=== PATIENT | male | born 1965 | race Caucasian/White ===

== ENCOUNTER 2019-12-30 11:28 | Inpatient (IN) | payer OTHER ==
--- NOTE | 2019-12-30 11:41 | BHS.RME ---
Substance Use & Tx History - Substance Use History Alcohol Substance amount: 6 beers daily 24 oz Frequency of use: Daily Substance route: Oral Date of Last Use: 12/30/19 - Last Treatment Date of last treatment: 2017 Treatment type: Substance Use Disorder (MINO) Where was last treatment: Detox Physical/Psych/Mental Status - Behavior General Behavior: Increased activity (restlessness, agitation) Eye Contact: Normal - Cooperativeness Cooperativeness: Cooperative - Thinking Thought Processes: Tight, Logical, Goal Directed Thought content: Future oriented - Physical Health Problems Is patient presently having any pain?: No Does patient presently have any injuries (include location): No Does patient currently have a fever: No Is patient : No CIWA Nausea/Vomitin Muscle Tremors: None Anxiety: 1-Mildly Anxious Agitation: 2 Paroxysmal Sweats: 1-Minimal Palms Moist Orientation: 0-Oriented Tacttile Disturbances: 2-Mild Itch/Numbness/Burn Auditory Disturbances: 0-None Visual Disturbances: 0-None Headache: 0-None Present CIWA-Ar Total Score: 8
[2019-12-30 12:39] VITALS: BMI 22.6
--- NOTE | 2019-12-30 13:09 | HP ---
CIWA Score Nausea/Vomitin-No Nausea/No Vomiting Muscle Tremors: None Anxiety: 0-No Anxiety, at Ease Agitation: 0-Normal Activity Paroxysmal Sweats: No Perspiration Orientation: 0-Oriented Tacttile Disturbances: 0-None Auditory Disturbances: 0-None Visual Disturbances: 0-None Headache: 0-None Present CIWA-Ar Total Score: 0 - Admission Criteria OASAS Guidelines: Admission for Medically Managed Detox: Requires at least one of the followin. CIWA greater than 12 2. Seizures within the past 24 hours 3. Delirium tremens within the past 24 hours 4. Hallucinations within the past 24 hours 5. Acute intervention needed for co occurring medical disorder 6. Acute intervention needed for co occurring psychiatric disorder 7. Severe withdrawal that cannot be handled at a lower level of care (continued vomiting, continued diarrhea, abnormal vital signs) requiring intravenous medication and/or fluids 8. Patient currently intoxicated with ERYN of 0.210. CIWA not applicable. Admitting History and Physical - Admission Chief Complaint: " I want to get better. I dont want to drink anymore." History of Present Illness: Substance Use & Tx History - Substance Use History Alcohol Substance amount: 6 beers daily 24 oz Frequency of use: Daily Substance route: Oral Date of Last Use: 12/30/19 - Last Treatment Date of last treatment: 2017 Treatment type: Substance Use Disorder (MINO) Where was last treatment: Detox Patient is a 54 y/o M who presents to [facility] for alcohol detox. Patient endo rses he consumes six 24 oz beer bottles per day; last drink was 9 am this morning. Patient first started to drink alcohol when he was 16 years old. Patient states he needs an eyeopener. PMH HTN, IDDM, HLD, GERD SocialHx- Former Tobacco Smoker 1 PPD (quit 20 years ago), Denies any illicit drug use. Alcohol history for HPI. SurgHx- LAP Cholecystectomy (2 years ago), Pilonidal cyst removal. FH- Father DM. Mother-HTN Allergies: Peanuts History Source: Patient Limitations to Obtaining History: No Limitations - Past Medical History Cardiovascular: Yes: HTN, Hyperlipdemia - Past Surgical History Past Surgical History: Yes: Cholecystectomy Additional Past Surgical History: Pilonidal cyst removal - Smoking History Smoking history: Former smoker Have you smoked in the past 12 months: No If you are a former smoker, when did you quit?: 20 YRS ago - Alcohol/Substance Use Hx Alcohol Use: Yes Admission [facility] Allergies/Adverse Reactions: Allergies Allergy/AdvReac Type Severity Reaction Status Date / Time No Known Drug Allergies Allergy Verified 12/30/19 12:26 peanuts Allergy Severe Difficulty Uncoded 12/30/19 12:26 Breathing Exam Limitations: No Limitations - Ebola screening Have you traveled outside of the country in the last 21 days: No Have you had contact with anyone from an Ebola affected area: No Have you been sick,other than usual withdrawal symptoms: No - Review of Systems Constitutional: No Symptoms Reported EENT: reports: No Symptoms Reported Respiratory: reports: No Symptoms reported Cardiac: reports: No Symptoms Reported GI: reports: No Symptoms Reported : reports: No Symptoms Reported Musculoskeletal: reports: No Symptoms Reported Integumentary: reports: No Symptoms Reported Neuro: reports: No Symptoms reported Endocrine: reports: No Symptoms Reported Hematology: reports: No Symptoms Reported Psychiatric: reports: Orientated x3 Other Systems: Reviewed and Negative Patient History - Patient Medical History Hx Anemia: No Hx Asthma: No Hx Chronic Obstructive Pulmonary Disease (COPD): No Hx Cancer: No Hx Cardiac Disorders: Yes (Hperlipidemia) Hx Congestive Heart Failure: No Hx Hypertension: Yes Hx Hypercholesterolemia: Yes (ON MED) Hx Pacemaker: No HX Cerebrovascular Accident: No Hx Seizures: No Hx Dementia: No Hx Diabetes: Yes Hx Gastrointestinal Disorders: Yes (GERDS) Hx Liver Disease: No Hx Genitourinary Disorders: No Hx Sexually Transmitted Disorders: No Hx Renal Disease (ESRD): No Hx Thyroid Disease: No Hx Human Immunodeficiency Virus (HIV): No (NEGATIVE HX 2013) Hx Hepatitis C: No Hx Depression: No Hx Suicide Attempt: No Hx Bipolar Disorder: No Hx Schizophrenia: No - Patient Surgical History Past Surgical History: Yes Hx Neurologic Surgery: No Hx Cataract Extraction: No Hx Cardiac Surgery: No Hx Lung Surgery: No Hx Breast Surgery: No Hx Breast Biopsy: No Hx Abdominal Surgery: Yes (lap cholecystectomy 06/18/17) Hx Appendectomy: No Hx Cholecystectomy: No Hx Genitourinary Surgery: No Hx Section: No Hx Orthopedic Surgery: No Other Surgical History: pilonidal cyst at age of age 42 Anesthesia Reaction: No - PPD History Date: 12/18/17 - Smoking Cessation Smoking history: Former smoker Have you smoked in the past 12 months: No If you are a former smoker, when did you quit?: 20 YRS ago Cigars Per Day: 0 Hx Chewing Tobacco Use: No Initiated information on smoking cessation: No - Substance & Tx. History Hx Alcohol Use: Yes Hx Substance Use: Yes Substance Use Type: Alcohol - Substances abused Alcohol Substance route: Oral Frequency: Daily Amount used: 12 beers Age of first use: 16 Date of last use: 12/30/19 Admission Physical Exam [facility] - Vital Signs Vital Signs: Vital Signs - 24 hr 12/30/19 12:36 Temperature 98.0 F Pulse Rate 98 H Respiratory 20 Rate Blood Pressure 151/95 - Diagnostic (1) Insulin dependent diabetes mellitus Current Visit: Yes Status: Chronic (2) Alcohol dependence with uncomplicated withdrawal Current Visit: No Status: Acute (3) Hx of gastroesophageal reflux (GERD) Current Visit: No Status: Chronic (4) Hypercholesterolemia Current Visit: No Status: Chronic (5) Hypertension Current Visit: No Status: Chronic Qualifiers: Hypertension type: essential hypertension Cleared for Admission [facility] - Detox or Rehab [facility] Level of Care: Medically Managed Detox Regimen/Protocol: Librium Breathalyzer - Breathalyzer Breathalyzer: 0.210 Urine Drug Screen - Test Device Lot number: [id number] Expiration date: 02/15/21 - Control Is test valid?: Yes - Results Drug screen NEGATIVE: Yes Inpatient Rehab Admission - Rehab Decision to Admit Inpatient rehab admission?: No
[2019-12-30] MEDS ORDERED: METHOCARBAMOL 500 MG TABLET PO PRN (13:35)
[2019-12-30] MEDS ORDERED: BISMUTH SUBSALICYLATE 524 MG/30 ML UD PO PRN (13:35)
[2019-12-30] MEDS ORDERED: NICOTINE POLACRILEX 2 MG GUM BUC PRN (13:35)
[2019-12-30] MEDS ORDERED: MAG HYDROX/AL HYDROX/SIMETH 30 ML UNIT-DOSE CUP PO PRN (13:35)
[2019-12-30] MEDS ORDERED: MENTHOL/PHENOL 1 EACH UD MM PRN (13:35)
[2019-12-30] MEDS ORDERED: MAGNESIUM HYDROX 2400MG/30ML ORAL SUSPENSION 30 ML CUP PO PRN (13:35)
[2019-12-30] MEDS ORDERED: MAGNESIUM CITRATE 300 ML BOTTLE PO PRN (13:35)
[2019-12-30] MEDS ORDERED: ACETAMINOPHEN 325 MG TABLET (FP) PO PRN (13:35)
[2019-12-30] MEDS ORDERED: chlordiazePOXIDE HCL 25 MG CAPSULE PO PRN (13:36)
--- NOTE | 2019-12-30 13:42 | PN ---
Teaching Attending Note Name of Resident: Reji Gomez ATTENDING PHYSICIAN STATEMENT I saw and evaluated the patient. I reviewed the resident's note and discussed the case with the resident. I agree with the resident's findings and plan as documented. SUBJECTIVE: Agree with resident's subjective findings OBJECTIVE: Agree with resident's objective findings. ASSESSMENT AND PLAN: Agree with admission for detox from alcohol using Librium Detox Protocol.
[2019-12-30] MEDS ORDERED: ONDANSETRON *ODT* 4 MG TABLET SL ONE (13:45)
[2019-12-30] MEDS ORDERED: TUBERCULIN PPD 5 TU/0.1ML VIAL ID ONE (14:34)
[2019-12-30] MEDS: NICOTINE 7 MG/24 HOURS TOPICAL PATCH TD SCH (14:41)
[2019-12-30] MEDS: PRENATAL VITAMINS W/ FOLIC ACID TABLET (FP) PO SCH (14:42)
[2019-12-30] MEDS: hydrOXYzine PAMOATE 25 MG CAPSULE (FP) PO SCH ×3 (14:42→22:05)
[2019-12-30] MEDS: IBUPROFEN 400 MG TABLET (FP) PO PRN (14:48)
[2019-12-30 16:49] LABS: HEMATOCRIT 46.9 % (35.4-49); HEMOGLOBIN 15.7 GM/dL (11.7-16.9); MCH 31.9 pg (25.7-33.7); MCHC 33.4 g/dl (32.0-35.9); MEAN CELL VOLUME 95.3 fl (80-96); MEAN PLT VOLUME 8.3 fl (7.5-11.1); PLATELET COUNT 221 K/MM3 (134-434); RBC 4.92 M/mm3 (4.00-5.60); RDW 14.2 % (11.9-15.9); WHITE BLOOD COUNT 6.6 K/mm3 (4.0-10.0)
[2019-12-30 16:58] LABS: ALBUMIN 4.1 g/dl (3.4-5.0); BILIRUBIN,TOTAL 0.3 mg/dL (0.2-1); BLOOD UREA NITROGEN 4.9 mg/dL (7-18); CALCIUM 8.8 mg/dL (8.5-10.1); CREATININE 0.7 mg/dL (0.55-1.3); MAGNESIUM 2.5 mg/dL (1.8-2.4); PHOSPHOROUS 3.5 mg/dL (2.5-4.9); TOT PROT 8.1 g/dl (6.4-8.2)
[2019-12-30] MEDS: chlordiazePOXIDE HCL 25 MG CAPSULE PO SCH ×2 (17:14→22:05)
[2019-12-30] MEDS: GABAPENTIN 300 MG CAPSULE PO SCH (22:05)
[2019-12-30] MEDS: MELATONIN 5 MG TABLETS PO SCH (22:05)
[2019-12-30] MEDS: THIAMINE HCL 100 MG TABLET (FP) PO SCH (22:05)
[2019-12-30] MEDS: INSULIN (LEVEMIR) 100 UNITS/ML UNITS SQ SCH (22:07)
[2019-12-31] MEDS: hydrOXYzine PAMOATE 25 MG CAPSULE (FP) PO SCH ×5 (06:24→22:13)
[2019-12-31] MEDS: chlordiazePOXIDE HCL 25 MG CAPSULE PO SCH ×4 (06:25→22:14)
--- NOTE | 2019-12-31 09:45 | EKG ---
Test Reason : Blood Pressure : / mmHG Vent. Rate : 096 BPM Atrial Rate : 096 BPM P-R Int : 152 ms QRS Dur : 098 ms QT Int : 364 ms P-R-T Axes : 061 034 053 degrees QTc Int : 459 ms NORMAL SINUS RHYTHM possibly inferior infarct ABNORMAL ECG Confirmed by MD HO, JIGAR ([id number]) on 12/31/2019 9:45:34 AM Referred By: Kendra ARCOS Confirmed By:JIGAR TEAGUE MD
[2019-12-31] MEDS: LISINOPRIL 5 MG TABLET (FP) PO SCH (10:13)
[2019-12-31] MEDS: PRENATAL VITAMINS W/ FOLIC ACID TABLET (FP) PO SCH (10:13)
[2019-12-31] MEDS: GABAPENTIN 300 MG CAPSULE PO SCH ×2 (10:13→22:13)
[2019-12-31] MEDS: ASPIRIN 81 MG CHEWABLE TABLETS PO SCH (10:13)
[2019-12-31] MEDS: NICOTINE 7 MG/24 HOURS TOPICAL PATCH TD SCH (10:13)
--- NOTE | 2019-12-31 10:18 | PN ---
S CIWA - CIWA Score Nausea/Vomitin-No Nausea/No Vomiting Muscle Tremors: 1-None Visible, but [place] Anxiety: 0-No Anxiety, at Ease Agitation: 0-Normal Activity Paroxysmal Sweats: 1-Minimal Palms Moist Orientation: 0-Oriented Tacttile Disturbances: 0-None Auditory Disturbances: 0-None Visual Disturbances: 0-None Headache: 0-None Present CIWA-Ar Total Score: 2 BHS Progress Note (SOAP) Subjective: Patient found sitting in Dining Room. Reports, "I feel good." Objective: General: no apparent distress HEENTM: normocephalic, PERRLA NEck: supple Resp: Respirations unlabored, clear, no use of accessory muscles ABD: +BS MSK: full weight bearing, steady gait Neuro: A+OX4, Muscle strength equal bilaterally 12/31/19 10:14 12/31/19 10:17 Vital Signs Period Temp Pulse Resp BP Sys/Reis Pulse Ox Last 24 Hr 97.7 F-98.4 F 88-112 16-20 140-154/76-95 95-98 Assessment: Withdrawal from Alcohol 12/31/19 10:17 Plan: Continue detox protocol Encourage hydration & nutrition Maintain safety
[2019-12-31] MEDS ORDERED: INSULIN (NOVOLOG) ASPART 100 UNITS/ML 10ML VIAL ONE (17:20)
[2019-12-31] MEDS: INSULIN SLIDING SCALE (NOVOLOG) 1 VIAL SQ SCH ×2 (18:04→22:11)
[2019-12-31] MEDS: INSULIN (LEVEMIR) 100 UNITS/ML UNITS SQ SCH (22:09)
[2019-12-31] MEDS ORDERED: INSULIN (LEVEMIR) 100 UNITS/ML UNITS SQ ONE (22:11)
[2019-12-31] MEDS: THIAMINE HCL 100 MG TABLET (FP) PO SCH (22:13)
[2019-12-31] MEDS: MELATONIN 5 MG TABLETS PO SCH (22:13)
[2019-12-31] MEDS: ACETAMINOPHEN 325 MG TABLET (FP) PO PRN (22:14)
[2020-01-01] MEDS: hydrOXYzine PAMOATE 25 MG CAPSULE (FP) PO SCH ×5 (06:29→21:50)
[2020-01-01] MEDS: chlordiazePOXIDE HCL 25 MG CAPSULE PO SCH ×4 (06:29→21:59)
[2020-01-01] MEDS: INSULIN SLIDING SCALE (NOVOLOG) 1 VIAL SQ SCH ×4 (06:31→21:51)
[2020-01-01] MEDS: ACETAMINOPHEN 325 MG TABLET (FP) PO PRN (06:32)
[2020-01-01] MEDS: IBUPROFEN 400 MG TABLET (FP) PO PRN (09:23)
[2020-01-01] MEDS: LISINOPRIL 5 MG TABLET (FP) PO SCH (10:37)
[2020-01-01] MEDS: ASPIRIN 81 MG CHEWABLE TABLETS PO SCH (10:38)
[2020-01-01] MEDS: PRENATAL VITAMINS W/ FOLIC ACID TABLET (FP) PO SCH (10:38)
[2020-01-01] MEDS: NICOTINE 7 MG/24 HOURS TOPICAL PATCH TD SCH (10:38)
[2020-01-01] MEDS: GABAPENTIN 300 MG CAPSULE PO SCH ×2 (10:38→21:50)
[2020-01-01] MEDS ORDERED: INSULIN (NOVOLOG) ASPART 100 UNITS/ML 10ML VIAL ONE ×3 (11:32→22:43)
--- NOTE | 2020-01-01 12:58 | PN ---
[facility] CIWA - CIWA Score Nausea/Vomitin-Mild Nausea/No Vomiting Muscle Tremors: 1-None Visible, but [place] Anxiety: 3 Agitation: 0-Normal Activity Paroxysmal Sweats: 4-Forehead w/Sweat Beads Orientation: 0-Oriented Tacttile Disturbances: 1-Very Mild Itch/Numbness Auditory Disturbances: 0-None Visual Disturbances: 0-None Headache: 1-Very Mild CIWA-Ar Total Score: 11 BHS Progress Note (SOAP) Subjective: Patient c/o abd discomfort. Reports hx of gallstones, previous surgery, and states that sometimes causes pain. States that malanta does not work, and that nexium works. Also c/o lower extremity neuropathy; patient is diabetic, he reports that he does not have his amary or metformin. Also reporting left ear pain. Patient endorses he consumes six 24 oz beer bottles per day; last drink was 9 am this morning. Patient first started to drink alcohol when he was 16 years old. Patient states he needs an eyeopener. PMH HTN, IDDM, HLD, GERD SocialHx- Former Tobacco Smoker 1 PPD (quit 20 years ago), Denies any illicit drug use. Alcohol history for HPI. SurgHx- LAP Cholecystectomy (2 years ago), Pilonidal cyst removal. FH- Father DM. Mother-HTN Objective: 01/01/20 12:57 Lab Results WBC 6.6 K/mm3 (4.0-10.0) 12/30/19 13:00 RBC 4.92 M/mm3 (4.00-5.60) 12/30/19 13:00 Hgb 15.7 GM/dL (11.7-16.9) 12/30/19 13:00 Hct 46.9 % (35.4-49) 12/30/19 13:00 MCV 95.3 fl (80-96) 12/30/19 13:00 MCHC 33.4 g/dl (32.0-35.9) 12/30/19 13:00 RDW 14.2 % (11.9-15.9) 12/30/19 13:00 Plt Count 221 K/MM3 (134-434) 12/30/19 13:00 Sodium 139 mmol/L (136-145) 12/30/19 13:00 Potassium 4.0 mmol/L (3.5-5.1) 12/30/19 13:00 Chloride 102 mmol/L (98-107) 12/30/19 13:00 Carbon Dioxide 26 mmol/L (21-32) 12/30/19 13:00 Anion Gap 11 MMOL/L (8-16) 12/30/19 13:00 BUN 4.9 mg/dL (7-18) L 12/30/19 13:00 Creatinine 0.7 mg/dL (0.55-1.3) 12/30/19 13:00 Random Glucose 222 mg/dL (74-106) H 12/30/19 13:00 Calcium 8.8 mg/dL (8.5-10.1) 12/30/19 13:00 Vital Signs Period Temp Pulse Resp BP Sys/Reis Pulse Ox Last 24 Hr 97.1 F-97.6 F 75-92 16-18 130-138/75-83 97-97 01/01/20 13:10 General: anxious HEENTM: Normocephalic, unable to visualize left TM-cerumen, PERRLA, EOMI Neck: supple Resp: unlabored, no use of accessory muscles ABD: +BS,distended, non-tender MSK: full weight bearing, steady gait neuro: decreased sensation, bilateral feet; muscle strength equal bilaterally Assessment: withdrawal from alcohol GERD Excessive cerumen, left ear canal diabetes, type 2 01/01/20 13:13 01/01/20 13:14 Plan: Continue detox protocol Hydration and nutrition Start protonix Order metformin and amaryl Psych consult to determine if gabapentin and pamelor are for psychiatric issues or neuropathy (patient unable to tell me). If for neuropathy, will order.
--- NOTE | 2020-01-01 16:15 | CONSULT ---
[facility] Psychiatric Consult - Data Date of interview: 01/01/20 Admission source: [facility] Identifying data: Patient is a 54 year old male, father of four, domiciled, and employed as a commercial driver's license driver. This is one of multiple admissions for patient. Patient admitted to for alcohol dependence. Substance Abuse History: - Smoking Cessation. Smoking history: Former smoker. Have you smoked in the past 12 months: No. If you are a former smoker, when did you quit?: 20 YRS ago. Cigars Per Day: 0. Hx Chewing Tobacco Use: No. Initiated information on smoking cessation: No. - Substance & Tx. History. Hx Alcohol Use: Yes. Hx Substance Use: Yes. Substance Use Type: Alcohol. - Substances abused. Alcohol. Substance route: Oral. Frequency: Daily. Amount used: 12 beers. Age of first use: 16. Date of last use: 12/30/19 Medical History: Significant for history of HTN,Hyperlipidemia, IDDM, GERD and S/P removal of Pilonidal cyst Psychiatric History: Patient denies history of psychiatric hospitalization, outpatient care and suicide attempt. Physical/Sexual Abuse/Trauma History: denies. Mental Status Exam - Mental Status Exam Alert and Oriented to: Time, Place, Person Cognitive Function: Good Patient Appearance: Well Groomed Mood: Hopeful Affect: Appropriate Patient Behavior: Appropriate, Cooperative Speech Pattern: Appropriate Voice Loudness: Normal Thought Process: Goal Oriented Thought Disorder: Not Present Hallucinations: Denies Suicidal Ideation: Denies Homicidal Ideation: Denies Insight/Judgement: Poor Sleep: Fair Appetite: Fair Muscle strength/Tone: Normal Gait/Station: Normal Psychiatric Findings - Problem List ([place] 1, 2,3) (1) Alcohol dependence with uncomplicated withdrawal Current Visit: Yes Status: Acute - Initial Treatment Plan Initial Treatment Plan: Psychoeducation provided. Detoxification in progress. Observation.
[2020-01-01] MEDS: metFORMIN HCL 500 MG TABLET (FP) PO SCH (16:28)
[2020-01-01] MEDS: ATORVASTATIN CA 20 MG TABLET (FP) PO SCH (21:50)
[2020-01-01] MEDS: THIAMINE HCL 100 MG TABLET (FP) PO SCH (21:50)
[2020-01-01] MEDS: CARBAMIDE PEROXIDE 6.5% OTIC 15 ML BOTTLE AS SCH (21:51)
[2020-01-01] MEDS: INSULIN (LEVEMIR) 100 UNITS/ML UNITS SQ SCH (21:51)
[2020-01-01] MEDS: MELATONIN 5 MG TABLETS PO SCH (21:52)
[2020-01-02] MEDS ORDERED: chlordiazePOXIDE HCL 10 MG CAPSULE PO PRN
[2020-01-02] MEDS: chlordiazePOXIDE HCL 10 MG CAPSULE PO SCH ×4 (05:54→22:35)
[2020-01-02] MEDS: hydrOXYzine PAMOATE 25 MG CAPSULE (FP) PO SCH ×5 (05:54→22:35)
[2020-01-02] MEDS: GLIMEPIRIDE 4 MG TABLET PO SCH (06:00)
[2020-01-02] MEDS: INSULIN SLIDING SCALE (NOVOLOG) 1 VIAL SQ SCH ×4 (06:00→22:31)
[2020-01-02] MEDS: metFORMIN HCL 500 MG TABLET (FP) PO SCH ×2 (06:00→17:10)
[2020-01-02] MEDS: IBUPROFEN 400 MG TABLET (FP) PO PRN ×2 (06:04→17:28)
[2020-01-02] MEDS ORDERED: INSULIN (NOVOLOG) ASPART 100 UNITS/ML 10ML VIAL ONE ×4 (06:17→22:33)
[2020-01-02] MEDS: GABAPENTIN 300 MG CAPSULE PO SCH ×2 (11:09→22:34)
[2020-01-02] MEDS: LISINOPRIL 5 MG TABLET (FP) PO SCH (11:09)
[2020-01-02] MEDS: ASPIRIN 81 MG CHEWABLE TABLETS PO SCH (11:10)
[2020-01-02] MEDS: NICOTINE 7 MG/24 HOURS TOPICAL PATCH TD SCH (11:10)
[2020-01-02] MEDS: PRENATAL VITAMINS W/ FOLIC ACID TABLET (FP) PO SCH (11:10)
[2020-01-02] MEDS: CARBAMIDE PEROXIDE 6.5% OTIC 15 ML BOTTLE AS SCH ×2 (11:12→22:35)
[2020-01-02] MEDS: ACETAMINOPHEN 325 MG TABLET (FP) PO PRN ×2 (11:37→23:27)
[2020-01-02] MEDS ORDERED: ONDANSETRON *ODT* 4 MG TABLET SL PRN (12:40)
--- NOTE | 2020-01-02 12:40 | PN ---
S CIWA - CIWA Score Nausea/Vomitin-No Nausea/No Vomiting Muscle Tremors: 3 Anxiety: 4-Mod. Anxious/Guarded Agitation: 2 Paroxysmal Sweats: No Perspiration Orientation: 0-Oriented Tacttile Disturbances: 0-None Auditory Disturbances: 0-None Visual Disturbances: 0-None Headache: 0-None Present CIWA-Ar Total Score: 9 BHS Progress Note (SOAP) Subjective: Pt seen this morning exercise-walking on the hallway during rounds. C/o tremors fatigue nausea/vomitting "woozy" feeling Objective: 01/02/20 12:37 Vital Signs - 24 hr 01/01/20 01/01/20 01/01/20 12:38 16:30 20:30 Temperature 97.3 F L 97.3 F L 97.3 F L Pulse Rate 86 76 81 Respiratory 18 16 18 Rate Blood Pressure 149/95 148/78 154/91 O2 Sat by Pulse 98 98 Oximetry (%) 01/02/20 01/02/20 05:47 09:18 Temperature 97.1 F L 98.4 F Pulse Rate 64 95 H Respiratory 18 16 Rate Blood Pressure 129/72 131/76 O2 Sat by Pulse 96 98 Oximetry (%) Laboratory Tests 12/30/19 12/30/19 12/30/19 12:52 13:00 13:00 WBC 6.6 RBC 4.92 Hgb 15.7 Hct 46.9 MCV 95.3 MCH 31.9 MCHC 33.4 RDW 14.2 Plt Count 221 MPV 8.3 Sodium 139 Potassium 4.0 Chloride 102 Carbon Dioxide 26 Anion Gap 11 BUN 4.9 L Creatinine 0.7 Est GFR (CKD-EPI)AfAm 125.75 Est GFR (CKD-EPI)NonAf 108.50 POC Glucometer 219 Random Glucose 222 H Hemoglobin A1c % Calcium 8.8 Phosphorus 3.5 Magnesium 2.5 H Total Bilirubin 0.3 AST 96 H ALT 96 H Alkaline Phosphatase 100 Total Protein 8.1 Albumin 4.1 Syphilis Serology COVID-19 ([facility]) HIV Ag/Ab Combo Qual 12/30/19 12/30/19 12/30/19 13:00 13:15 14:30 WBC RBC Hgb Hct MCV MCH MCHC RDW Plt Count MPV Sodium Potassium Chloride Carbon Dioxide Anion Gap BUN Creatinine Est GFR (CKD-EPI)AfAm Est GFR (CKD-EPI)NonAf POC Glucometer Random Glucose Hemoglobin A1c % Calcium Phosphorus Magnesium Total Bilirubin AST ALT Alkaline Phosphatase Total Protein Albumin Syphilis Serology Non-reactive COVID-19 ([facility]) Not detected HIV Ag/Ab Combo Qual Negative 12/30/19 12/31/19 12/31/19 20:45 07:30 16:47 WBC RBC Hgb Hct MCV MCH MCHC RDW Plt Count MPV Sodium Potassium Chloride Carbon Dioxide Anion Gap BUN Creatinine Est GFR (CKD-EPI)AfAm Est GFR (CKD-EPI)NonAf POC Glucometer 333 256 Random Glucose Hemoglobin A1c % 9.6 H Calcium Phosphorus Magnesium Total Bilirubin AST ALT Alkaline Phosphatase Total Protein Albumin Syphilis Serology COVID-19 ([facility]) HIV Ag/Ab Combo Qual 12/31/19 01/01/20 01/01/20 22:08 06:28 11:28 WBC RBC Hgb Hct MCV MCH MCHC RDW Plt Count MPV Sodium Potassium Chloride Carbon Dioxide Anion Gap BUN Creatinine Est GFR (CKD-EPI)AfAm Est GFR (CKD-EPI)NonAf POC Glucometer 353 139 358 Random Glucose Hemoglobin A1c % Calcium Phosphorus Magnesium Total Bilirubin AST ALT Alkaline Phosphatase Total Protein Albumin Syphilis Serology COVID-19 ([facility]) HIV Ag/Ab Combo Qual 01/01/20 01/01/20 01/02/20 16:25 21:49 05:53 WBC RBC Hgb Hct MCV MCH MCHC RDW Plt Count MPV Sodium Potassium Chloride Carbon Dioxide Anion Gap BUN Creatinine Est GFR (CKD-EPI)AfAm Est GFR (CKD-EPI)NonAf POC Glucometer 274 349 212 Random Glucose Hemoglobin A1c % Calcium Phosphorus Magnesium Total Bilirubin AST ALT Alkaline Phosphatase Total Protein Albumin Syphilis Serology COVID-19 ([facility]) HIV Ag/Ab Combo Qual 01/02/20 11:28 WBC RBC Hgb Hct MCV MCH MCHC RDW Plt Count MPV Sodium Potassium Chloride Carbon Dioxide Anion Gap BUN Creatinine Est GFR (CKD-EPI)AfAm Est GFR (CKD-EPI)NonAf POC Glucometer 200 Random Glucose Hemoglobin A1c % Calcium Phosphorus Magnesium Total Bilirubin AST ALT Alkaline Phosphatase Total Protein Albumin Syphilis Serology COVID-19 ([facility]) HIV Ag/Ab Combo Qual Covid-19 not detected alert o x 3 nad oob ambulating with steady gait Assessment: 01/02/20 12:39 withdrawal sx Plan: cont detox increase po fluids maintain safety zofran odt prn as directed
[2020-01-02] MEDS ORDERED: FAMOTIDINE 20 MG TABLET PO ONE (14:35)
[2020-01-02] MEDS: INSULIN (LEVEMIR) 100 UNITS/ML UNITS SQ SCH (22:33)
[2020-01-02] MEDS: THIAMINE HCL 100 MG TABLET (FP) PO SCH (22:34)
[2020-01-02] MEDS: ATORVASTATIN CA 20 MG TABLET (FP) PO SCH (22:34)
[2020-01-02] MEDS: FAMOTIDINE 20 MG TABLET PO SCH (22:35)
[2020-01-02] MEDS: MELATONIN 5 MG TABLETS PO SCH (22:35)
[2020-01-03] MEDS: hydrOXYzine PAMOATE 25 MG CAPSULE (FP) PO SCH ×5 (06:41→21:31)
[2020-01-03] MEDS: GLIMEPIRIDE 4 MG TABLET PO SCH (06:42)
[2020-01-03] MEDS: chlordiazePOXIDE HCL 10 MG CAPSULE PO SCH ×2 (06:42→17:33)
[2020-01-03] MEDS: metFORMIN HCL 500 MG TABLET (FP) PO SCH ×2 (06:42→16:32)
[2020-01-03] MEDS: INSULIN SLIDING SCALE (NOVOLOG) 1 VIAL SQ SCH ×4 (06:47→21:33)
[2020-01-03] MEDS: PRENATAL VITAMINS W/ FOLIC ACID TABLET (FP) PO SCH (10:04)
[2020-01-03] MEDS: GABAPENTIN 300 MG CAPSULE PO SCH ×2 (10:05→21:31)
[2020-01-03] MEDS: CARBAMIDE PEROXIDE 6.5% OTIC 15 ML BOTTLE AS SCH ×2 (10:05→21:32)
[2020-01-03] MEDS: FAMOTIDINE 20 MG TABLET PO SCH ×2 (10:05→21:32)
[2020-01-03] MEDS: LISINOPRIL 5 MG TABLET (FP) PO SCH (10:05)
[2020-01-03] MEDS: ASPIRIN 81 MG CHEWABLE TABLETS PO SCH (10:05)
[2020-01-03] MEDS: NICOTINE 7 MG/24 HOURS TOPICAL PATCH TD SCH (10:06)
[2020-01-03] MEDS: ACETAMINOPHEN 325 MG TABLET (FP) PO PRN ×2 (10:08→17:34)
--- NOTE | 2020-01-03 11:08 | PN ---
[facility] CIWA - CIWA Score Nausea/Vomitin-No Nausea/No Vomiting Muscle Tremors: 2 Anxiety: 2 Agitation: 1-Slight > Activity Paroxysmal Sweats: No Perspiration Orientation: 0-Oriented Tacttile Disturbances: 0-None Auditory Disturbances: 0-None Visual Disturbances: 0-None Headache: 0-None Present CIWA-Ar Total Score: 5 BHS Progress Note (SOAP) Subjective: Complaints of mild anxiety and tremors. Objective: 01/03/20 11:05 Vital Signs 01/03/20 01/03/20 05:46 08:41 Temperature 97.3 F L 97.3 F L Pulse Rate 64 84 Respiratory 18 18 Rate Blood Pressure 130/72 140/87 O2 Sat by Pulse 97 97 Oximetry (%) Laboratory Last Values WBC 6.6 K/mm3 (4.0-10.0) 12/30/19 13:00 RBC 4.92 M/mm3 (4.00-5.60) 12/30/19 13:00 Hgb 15.7 GM/dL (11.7-16.9) 12/30/19 13:00 Hct 46.9 % (35.4-49) 12/30/19 13:00 MCV 95.3 fl (80-96) 12/30/19 13:00 MCH 31.9 pg (25.7-33.7) 12/30/19 13:00 MCHC 33.4 g/dl (32.0-35.9) 12/30/19 13:00 RDW 14.2 % (11.9-15.9) 12/30/19 13:00 Plt Count 221 K/MM3 (134-434) 12/30/19 13:00 MPV 8.3 fl (7.5-11.1) 12/30/19 13:00 Sodium 139 mmol/L (136-145) 12/30/19 13:00 Potassium 4.0 mmol/L (3.5-5.1) 12/30/19 13:00 Chloride 102 mmol/L (98-107) 12/30/19 13:00 Carbon Dioxide 26 mmol/L (21-32) 12/30/19 13:00 Anion Gap 11 MMOL/L (8-16) 12/30/19 13:00 BUN 4.9 mg/dL (7-18) L 12/30/19 13:00 Creatinine 0.7 mg/dL (0.55-1.3) 12/30/19 13:00 Est GFR (CKD-EPI)AfAm 125.75 12/30/19 13:00 Est GFR (CKD-EPI)NonAf 108.50 12/30/19 13:00 POC Glucometer 120 UNITS (80-120) 01/03/20 06:40 Random Glucose 222 mg/dL (74-106) H 12/30/19 13:00 Hemoglobin A1c % 9.6 % (4.2-6.3) H 12/31/19 07:30 Calcium 8.8 mg/dL (8.5-10.1) 12/30/19 13:00 Phosphorus 3.5 mg/dL (2.5-4.9) 12/30/19 13:00 Magnesium 2.5 mg/dL (1.8-2.4) H 12/30/19 13:00 Total Bilirubin 0.3 mg/dL (0.2-1) 12/30/19 13:00 AST 96 U/L (15-37) H 12/30/19 13:00 ALT 96 U/L (13-61) H 12/30/19 13:00 Alkaline Phosphatase 100 U/L (45-117) 12/30/19 13:00 Total Protein 8.1 g/dl (6.4-8.2) 12/30/19 13:00 Albumin 4.1 g/dl (3.4-5.0) 12/30/19 13:00 Syphilis Serology Non-reactive (NONREACTIVE) 12/30/19 13:00 COVID-19 ([facility]) Not detected (Not Detected) 12/30/19 14:30 HIV Ag/Ab Combo Qual Negative (NEGATIVE) 12/30/19 13:15 Labs noted. Assessment: 01/03/20 11:08 Alert and oriented x 3, in no acute respiratory distress. Full ROM, ambulating in the unit without assistance. For D/C in AM. Does not need prescriptions. 01/03/20 11:10 Plan: Continue detox protocol. D/C in AM.
[2020-01-03] MEDS ORDERED: INSULIN (NOVOLOG) ASPART 100 UNITS/ML 10ML VIAL ONE ×2 (11:33→16:31)
[2020-01-03] MEDS: ATORVASTATIN CA 20 MG TABLET (FP) PO SCH (21:31)
[2020-01-03] MEDS: THIAMINE HCL 100 MG TABLET (FP) PO SCH (21:31)
[2020-01-03] MEDS: MELATONIN 5 MG TABLETS PO SCH (21:32)
[2020-01-03] MEDS: INSULIN (LEVEMIR) 100 UNITS/ML UNITS SQ SCH (21:33)
[2020-01-04] MEDS ORDERED: chlordiazePOXIDE HCL 10 MG CAPSULE PO ONE (05:00)
[2020-01-04] MEDS: metFORMIN HCL 500 MG TABLET (FP) PO SCH ×2 (06:18→16:25)
[2020-01-04] MEDS: hydrOXYzine PAMOATE 25 MG CAPSULE (FP) PO SCH ×5 (06:18→21:31)
[2020-01-04] MEDS: GLIMEPIRIDE 4 MG TABLET PO SCH (06:18)
[2020-01-04] MEDS: INSULIN SLIDING SCALE (NOVOLOG) 1 VIAL SQ SCH ×4 (06:24→21:30)
[2020-01-04] MEDS: PRENATAL VITAMINS W/ FOLIC ACID TABLET (FP) PO SCH (10:09)
[2020-01-04] MEDS: GABAPENTIN 300 MG CAPSULE PO SCH ×2 (10:09→21:26)
[2020-01-04] MEDS: FAMOTIDINE 20 MG TABLET PO SCH ×2 (10:10→21:25)
[2020-01-04] MEDS: CARBAMIDE PEROXIDE 6.5% OTIC 15 ML BOTTLE AS SCH ×2 (10:10→21:25)
[2020-01-04] MEDS: ASPIRIN 81 MG CHEWABLE TABLETS PO SCH (10:10)
[2020-01-04] MEDS: NICOTINE 7 MG/24 HOURS TOPICAL PATCH TD SCH (10:10)
[2020-01-04] MEDS: LISINOPRIL 5 MG TABLET (FP) PO SCH (10:10)
[2020-01-04] MEDS: ACETAMINOPHEN 325 MG TABLET (FP) PO PRN (10:11)
[2020-01-04] MEDS ORDERED: INSULIN (NOVOLOG) ASPART 100 UNITS/ML 10ML VIAL ONE ×3 (11:44→21:49)
[2020-01-04] MEDS: IBUPROFEN 400 MG TABLET (FP) PO PRN ×2 (12:36→21:25)
--- NOTE | 2020-01-04 13:15 | PN ---
S CIWA - CIWA Score Nausea/Vomitin-No Nausea/No Vomiting Muscle Tremors: 1-None Visible, but Schuyler Anxiety: 1-Mildly Anxious Agitation: 0-Normal Activity Paroxysmal Sweats: No Perspiration Orientation: 0-Oriented Tacttile Disturbances: 0-None Auditory Disturbances: 0-None Visual Disturbances: 1-Very Mild Sensitivity Headache: 0-None Present CIWA-Ar Total Score: 3 BHS Progress Note (SOAP) Subjective: 54 YEARS OLD MALE ADMITTED ON 12/30/19 FOR ALCOHOL WITHDRAWAL SX MANAGEMENT TREATING WITH [facility]OX REGIMENT RECEIVED LAST DOSE [facility] TODAY FEELING BETTER LESS TREMOR MILD ANXIETY MR CAR PREFERS TO GO TO [facility] FOR ALCOHOL RECOVERY Objective: 01/04/20 13:16 Vital Signs - 24 hr 01/03/20 01/03/20 01/03/20 14:20 17:00 21:00 Temperature 98 F 98.2 F 98.1 F Pulse Rate 69 65 71 Respiratory 181 H 18 18 Rate Blood Pressure 140/87 139/79 152/75 O2 Sat by Pulse 98 98 98 Oximetry (%) 01/04/20 01/04/20 01/04/20 06:01 08:22 12:32 Temperature 97.8 F 97.7 F 98.0 F Pulse Rate 69 76 80 Respiratory 18 16 18 Rate Blood Pressure 141/81 137/72 141/78 O2 Sat by Pulse 97 97 Oximetry (%) Laboratory Tests 12/30/19 12/30/19 12/30/19 12:52 13:00 13:00 WBC 6.6 RBC 4.92 Hgb 15.7 Hct 46.9 MCV 95.3 MCH 31.9 MCHC 33.4 RDW 14.2 Plt Count 221 MPV 8.3 Sodium 139 Potassium 4.0 Chloride 102 Carbon Dioxide 26 Anion Gap 11 BUN 4.9 L Creatinine 0.7 Est GFR (CKD-EPI)AfAm 125.75 Est GFR (CKD-EPI)NonAf 108.50 POC Glucometer 219 Random Glucose 222 H Hemoglobin A1c % Calcium 8.8 Phosphorus 3.5 Magnesium 2.5 H Total Bilirubin 0.3 AST 96 H ALT 96 H Alkaline Phosphatase 100 Total Protein 8.1 Albumin 4.1 Syphilis Serology COVID-19 ([facility]) HIV Ag/Ab Combo Qual 12/30/19 12/30/19 12/30/19 13:00 13:15 14:30 WBC RBC Hgb Hct MCV MCH MCHC RDW Plt Count MPV Sodium Potassium Chloride Carbon Dioxide Anion Gap BUN Creatinine Est GFR (CKD-EPI)AfAm Est GFR (CKD-EPI)NonAf POC Glucometer Random Glucose Hemoglobin A1c % Calcium Phosphorus Magnesium Total Bilirubin AST ALT Alkaline Phosphatase Total Protein Albumin Syphilis Serology Non-reactive COVID-19 ([facility]) Not detected HIV Ag/Ab Combo Qual Negative 12/30/19 12/31/19 12/31/19 20:45 07:30 16:47 WBC RBC Hgb Hct MCV MCH MCHC RDW Plt Count MPV Sodium Potassium Chloride Carbon Dioxide Anion Gap BUN Creatinine Est GFR (CKD-EPI)AfAm Est GFR (CKD-EPI)NonAf POC Glucometer 333 256 Random Glucose Hemoglobin A1c % 9.6 H Calcium Phosphorus Magnesium Total Bilirubin AST ALT Alkaline Phosphatase Total Protein Albumin Syphilis Serology COVID-19 ([facility]) HIV Ag/Ab Combo Qual 12/31/19 01/01/20 01/01/20 22:08 06:28 11:28 WBC RBC Hgb Hct MCV MCH MCHC RDW Plt Count MPV Sodium Potassium Chloride Carbon Dioxide Anion Gap BUN Creatinine Est GFR (CKD-EPI)AfAm Est GFR (CKD-EPI)NonAf POC Glucometer [phone] Random Glucose Hemoglobin A1c % Calcium Phosphorus Magnesium Total Bilirubin AST ALT Alkaline Phosphatase Total Protein Albumin Syphilis Serology COVID-19 ([facility]) HIV Ag/Ab Combo Qual 01/01/20 01/01/20 01/02/20 16:25 21:49 05:53 WBC RBC Hgb Hct MCV MCH MCHC RDW Plt Count MPV Sodium Potassium Chloride Carbon Dioxide Anion Gap BUN Creatinine Est GFR (CKD-EPI)AfAm Est GFR (CKD-EPI)NonAf POC Glucometer 274 349 212 Random Glucose Hemoglobin A1c % Calcium Phosphorus Magnesium Total Bilirubin AST ALT Alkaline Phosphatase Total Protein Albumin Syphilis Serology COVID-19 ([facility]) HIV Ag/Ab Combo Qual 01/02/20 01/02/20 01/02/20 11:28 17:09 22:30 WBC RBC Hgb Hct MCV MCH MCHC RDW Plt Count MPV Sodium Potassium Chloride Carbon Dioxide Anion Gap BUN Creatinine Est GFR (CKD-EPI)AfAm Est GFR (CKD-EPI)NonAf POC Glucometer 200 315 395 Random Glucose Hemoglobin A1c % Calcium Phosphorus Magnesium Total Bilirubin AST ALT Alkaline Phosphatase Total Protein Albumin Syphilis Serology COVID-19 ([facility]) HIV Ag/Ab Combo Qual 01/03/20 01/03/20 01/03/20 06:40 11:30 16:29 WBC RBC Hgb Hct MCV MCH MCHC RDW Plt Count MPV Sodium Potassium Chloride Carbon Dioxide Anion Gap BUN Creatinine Est GFR (CKD-EPI)AfAm Est GFR (CKD-EPI)NonAf POC Glucometer 120 259 222 Random Glucose Hemoglobin A1c % Calcium Phosphorus Magnesium Total Bilirubin AST ALT Alkaline Phosphatase Total Protein Albumin Syphilis Serology COVID-19 ([facility]) HIV Ag/Ab Combo Qual 01/03/20 01/04/20 01/04/20 20:25 06:17 11:43 WBC RBC Hgb Hct MCV MCH MCHC RDW Plt Count MPV Sodium Potassium Chloride Carbon Dioxide Anion Gap BUN Creatinine Est GFR (CKD-EPI)AfAm Est GFR (CKD-EPI)NonAf POC Glucometer 290 112 299 Random Glucose Hemoglobin A1c % Calcium Phosphorus Magnesium Total Bilirubin AST ALT Alkaline Phosphatase Total Protein Albumin Syphilis Serology COVID-19 ([facility]) HIV Ag/Ab Combo Qual LONG HISTORY OF INSULIN DEPENDENT UNCONTROLLED DIABETES 01/04/20 13:18 01/04/20 13:19 AST ELEVATION ENCOURAGE MR CAR TO CONSIDER [facility] FOR ALCOHOL DETOX Assessment: 01/04/20 13:19 ALCOHOL WITHDRAWAL Plan: [facility] REGIMENT
[2020-01-04 21:22] VITALS: BP 163/85
[2020-01-04] MEDS: THIAMINE HCL 100 MG TABLET (FP) PO SCH (21:25)
[2020-01-04] MEDS: ATORVASTATIN CA 20 MG TABLET (FP) PO SCH (21:25)
[2020-01-04] MEDS: MELATONIN 5 MG TABLETS PO SCH (21:26)
[2020-01-04] MEDS: INSULIN (LEVEMIR) 100 UNITS/ML UNITS SQ SCH (21:30)
[2020-01-05 06:26] VITALS: PULSE 71; TEMP 98
[2020-01-05] MEDS: metFORMIN HCL 500 MG TABLET (FP) PO SCH (06:30)
[2020-01-05] MEDS: GLIMEPIRIDE 4 MG TABLET PO SCH (06:30)
[2020-01-05] MEDS: hydrOXYzine PAMOATE 25 MG CAPSULE (FP) PO SCH ×2 (06:30→10:20)
[2020-01-05] MEDS ORDERED: INSULIN (NOVOLOG) ASPART 100 UNITS/ML 10ML VIAL ONE ×2 (07:32→11:34)
[2020-01-05] MEDS: INSULIN SLIDING SCALE (NOVOLOG) 1 VIAL SQ SCH ×2 (08:04→11:34)
--- NOTE | 2020-01-05 08:50 | DS ---
[facility] Detox Discharge Summary Admission Date: 12/30/19 Discharge Date: 01/05/20 - History Present History: Alcohol Dependence Additional Comments: Pt has own meds at home and no need for courtesy Rx. Reports he has a PCP with [facility] clinic on [address] [facility], [place], [place]. Pertinent Past History: Type 2 DM HTN Hypercholesterolemia GERD - Physical Exam Results Vital Signs: Vital Signs Temperature 98.0 F 01/05/20 06:00 Pulse Rate 71 01/05/20 06:00 Respiratory Rate 18 01/05/20 06:00 Blood Pressure 163/85 01/05/20 06:00 O2 Sat by Pulse Oximetry (%) 95 01/05/20 06:00 Alert o x 3 nad oob ambulating with steady gait cardiac:s1 s2,rrr lungs:ctab extremities:no edema,skin intact. Pertinent Admission Physical Exam Findings: Laboratory Tests 12/30/19 12/30/19 12/30/19 12:52 13:00 13:00 WBC 6.6 RBC 4.92 Hgb 15.7 Hct 46.9 MCV 95.3 MCH 31.9 MCHC 33.4 RDW 14.2 Plt Count 221 MPV 8.3 Sodium 139 Potassium 4.0 Chloride 102 Carbon Dioxide 26 Anion Gap 11 BUN 4.9 L Creatinine 0.7 Est GFR (CKD-EPI)AfAm 125.75 Est GFR (CKD-EPI)NonAf 108.50 POC Glucometer 219 Random Glucose 222 H Hemoglobin A1c % Calcium 8.8 Phosphorus 3.5 Magnesium 2.5 H Total Bilirubin 0.3 AST 96 H ALT 96 H Alkaline Phosphatase 100 Total Protein 8.1 Albumin 4.1 Syphilis Serology COVID-19 ([facility]) HIV Ag/Ab Combo Qual 12/30/19 12/30/19 12/30/19 13:00 13:15 14:30 WBC RBC Hgb Hct MCV MCH MCHC RDW Plt Count MPV Sodium Potassium Chloride Carbon Dioxide Anion Gap BUN Creatinine Est GFR (CKD-EPI)AfAm Est GFR (CKD-EPI)NonAf POC Glucometer Random Glucose Hemoglobin A1c % Calcium Phosphorus Magnesium Total Bilirubin AST ALT Alkaline Phosphatase Total Protein Albumin Syphilis Serology Non-reactive COVID-19 ([facility]) Not detected HIV Ag/Ab Combo Qual Negative 12/30/19 12/31/19 12/31/19 20:45 07:30 16:47 WBC RBC Hgb Hct MCV MCH MCHC RDW Plt Count MPV Sodium Potassium Chloride Carbon Dioxide Anion Gap BUN Creatinine Est GFR (CKD-EPI)AfAm Est GFR (CKD-EPI)NonAf POC Glucometer 333 256 Random Glucose Hemoglobin A1c % 9.6 H Calcium Phosphorus Magnesium Total Bilirubin AST ALT Alkaline Phosphatase Total Protein Albumin Syphilis Serology COVID-19 ([facility]) HIV Ag/Ab Combo Qual 12/31/19 01/01/20 01/01/20 22:08 06:28 11:28 WBC RBC Hgb Hct MCV MCH MCHC RDW Plt Count MPV Sodium Potassium Chloride Carbon Dioxide Anion Gap BUN Creatinine Est GFR (CKD-EPI)AfAm Est GFR (CKD-EPI)NonAf POC Glucometer 353 139 358 Random Glucose Hemoglobin A1c % Calcium Phosphorus Magnesium Total Bilirubin AST ALT Alkaline Phosphatase Total Protein Albumin Syphilis Serology COVID-19 ([facility]) HIV Ag/Ab Combo Qual 01/01/20 01/01/20 01/02/20 16:25 21:49 05:53 WBC RBC Hgb Hct MCV MCH MCHC RDW Plt Count MPV Sodium Potassium Chloride Carbon Dioxide Anion Gap BUN Creatinine Est GFR (CKD-EPI)AfAm Est GFR (CKD-EPI)NonAf POC Glucometer 274 349 212 Random Glucose Hemoglobin A1c % Calcium Phosphorus Magnesium Total Bilirubin AST ALT Alkaline Phosphatase Total Protein Albumin Syphilis Serology COVID-19 ([facility]) HIV Ag/Ab Combo Qual 01/02/20 01/02/20 01/02/20 11:28 17:09 22:30 WBC RBC Hgb Hct MCV MCH MCHC RDW Plt Count MPV Sodium Potassium Chloride Carbon Dioxide Anion Gap BUN Creatinine Est GFR (CKD-EPI)AfAm Est GFR (CKD-EPI)NonAf POC Glucometer 200 315 395 Random Glucose Hemoglobin A1c % Calcium Phosphorus Magnesium Total Bilirubin AST ALT Alkaline Phosphatase Total Protein Albumin Syphilis Serology COVID-19 ([facility]) HIV Ag/Ab Combo Qual 01/03/20 01/03/20 01/03/20 06:40 11:30 16:29 WBC RBC Hgb Hct MCV MCH MCHC RDW Plt Count MPV Sodium Potassium Chloride Carbon Dioxide Anion Gap BUN Creatinine Est GFR (CKD-EPI)AfAm Est GFR (CKD-EPI)NonAf POC Glucometer 120 259 222 Random Glucose Hemoglobin A1c % Calcium Phosphorus Magnesium Total Bilirubin AST ALT Alkaline Phosphatase Total Protein Albumin Syphilis Serology COVID-19 ([facility]) HIV Ag/Ab Combo Qual 01/03/20 01/04/20 01/04/20 20:25 06:17 11:43 WBC RBC Hgb Hct MCV MCH MCHC RDW Plt Count MPV Sodium Potassium Chloride Carbon Dioxide Anion Gap BUN Creatinine Est GFR (CKD-EPI)AfAm Est GFR (CKD-EPI)NonAf POC Glucometer 290 112 299 Random Glucose Hemoglobin A1c % Calcium Phosphorus Magnesium Total Bilirubin AST ALT Alkaline Phosphatase Total Protein Albumin Syphilis Serology COVID-19 ([facility]) HIV Ag/Ab Combo Qual 01/04/20 01/04/20 01/05/20 16:23 21:24 06:29 WBC RBC Hgb Hct MCV MCH MCHC RDW Plt Count MPV Sodium Potassium Chloride Carbon Dioxide Anion Gap BUN Creatinine Est GFR (CKD-EPI)AfAm Est GFR (CKD-EPI)NonAf POC Glucometer 188 239 231 Random Glucose Hemoglobin A1c % Calcium Phosphorus Magnesium Total Bilirubin AST ALT Alkaline Phosphatase Total Protein Albumin Syphilis Serology COVID-19 ([facility]) HIV Ag/Ab Combo Qual 01/05/20 11:29 WBC RBC Hgb Hct MCV MCH MCHC RDW Plt Count MPV Sodium Potassium Chloride Carbon Dioxide Anion Gap BUN Creatinine Est GFR (CKD-EPI)AfAm Est GFR (CKD-EPI)NonAf POC Glucometer 241 Random Glucose Hemoglobin A1c % Calcium Phosphorus Magnesium Total Bilirubin AST ALT Alkaline Phosphatase Total Protein Albumin Syphilis Serology COVID-19 ([facility]) HIV Ag/Ab Combo Qual - Treatment Hospital Course: Detox Protocol Followed, Detoxed Safely, Responded well, Discharged Condition Good, Rehab Referral Accepted Patient has Accepted a Rehab Referral to: [facility] - Medication Discharge Medications: Ambulatory Orders metFORMIN HCL [Glucophage] 1,000 mg PO BID 12/21/14 Aspirin [ASA -] 81 mg PO DAILY 12/30/19 Atorvastatin Ca [Lipitor] 20 mg PO HS 12/30/19 Gabapentin [Neurontin] 600 mg PO BID 12/30/19 Glimepiride [Amaryl -] 4 mg PO DAILY@0700 12/30/19 Insulin Detemir [Levemir Flextouch] 20 unit SQ HS 12/30/19 Lisinopril 5 mg PO DAILY 12/30/19 Nortriptyline HCl 75 mg PO HS 12/30/19 Omeprazole Magnesium [Prilosec Otc] 20 mg PO DAILY 01/02/20 - Diagnosis (1) Alcohol dependence with uncomplicated withdrawal Current Visit: Yes Status: Acute (2) Weight loss Current Visit: Yes Status: Acute (3) DM2 (diabetes mellitus, type 2) Current Visit: Yes Status: Chronic Qualifiers: Diabetes mellitus shelter insulin use: with salvage determiner use Diabetes mellitus complication status: with unspecified complications (4) Hx of gastroesophageal reflux (GERD) Current Visit: Yes Status: Chronic (5) Hypercholesterolemia Current Visit: Yes Status: Chronic (6) Hypertension Current Visit: Yes Status: Chronic Qualifiers: Hypertension type: essential hypertension - AMA Did Patient Leave Against Medical Advice: No
[2020-01-05] MEDS ORDERED: LISINOPRIL 10 MG TABLET (FP) PO SCH (10:00)
[2020-01-05] MEDS: ASPIRIN 81 MG CHEWABLE TABLETS PO SCH (10:20)
[2020-01-05] MEDS: FAMOTIDINE 20 MG TABLET PO SCH (10:21)
[2020-01-05] MEDS: PRENATAL VITAMINS W/ FOLIC ACID TABLET (FP) PO SCH (10:21)
[2020-01-05] MEDS: GABAPENTIN 300 MG CAPSULE PO SCH (10:21)
[2020-01-05] MEDS: NICOTINE 7 MG/24 HOURS TOPICAL PATCH TD SCH (10:22)
[2020-01-05] MEDS: CARBAMIDE PEROXIDE 6.5% OTIC 15 ML BOTTLE AS SCH (10:23)
== END 2020-01-05 12:15 | disposition other institution (70) | DRG 775 ==
LOC: YASAS 11:28 → Y5N DETOX 12:48
PROVIDERS: ADMIT Allergy & Immunology; ATTEND Allergy & Immunology
PROC: HZ2ZZZZ Detoxification Services for Substance Abuse Treatment (ICD-10-PCS; principal; 2019-12-30)
DX: F10.230 Alcohol dependence with withdrawal, uncomplicated (principal); F17.211 Nicotine dependence, cigarettes, in remission; I10 Essential (primary) hypertension; E78.5 Hyperlipidemia, unspecified; E78.00 Pure hypercholesterolemia, unspecified; E11.9 Type 2 diabetes mellitus without complications; Z79.4 Long term (current) use of insulin; G62.9 Polyneuropathy, unspecified; K21.9 Gastro-esophageal reflux disease without esophagitis; H61.22 Impacted cerumen, left ear; R63.4 Abnormal weight loss; Z68.22 Body mass index [BMI] 22.0-22.9, adult; Z91.010 Allergy to peanuts; Z90.49 Acquired absence of other specified parts of digestive tract; Z98.890 Other specified postprocedural states
CPT/HCPCS: 36415; 71046-TC-FY; 80053; 82962; 83036; 83735; 84100; 85027; 86780; 87389; 93005; 93010; U0003

== ENCOUNTER 2020-01-05 12:16 | Inpatient (IN) | payer OTHER ==
--- NOTE | 2020-01-05 13:14 | HP ---
[facility] Re[facility] Assess/Revision - Admission History Date of Admission to Rehab: 01/05/20 - Findings Detox History & Physical reviewed: Yes Concur with findings: Yes Comments/Additional Findings: Pt completed detox on and referred to Rehab . PMHx: Type 2 DM. HTN. Hypercholesterolemia. GERD. Pt has own meds at home and no need for courtesy Rx upon discharge from detox today. Reports he has a PCP with [facility] clinic on [address] [facility], [place], [place]. Pt Will continue to receive home meds inhouse in Rehab. Inpatient Rehab Admission - Rehab Decision to Admit Inpatient rehab admission?: Yes - Initial Determination Are CD services needed?: Yes Free of communicable disease: Yes Not in need of hospitalization: Yes - Rehab Admission Criteria Previous failed treatment: Yes Poor recovery environment: Yes Comorbidities: Yes Lacks judgement: Yes Patient is meeting Inpatient Rehab admission criteria:: Yes
[2020-01-05] MEDS ORDERED: LOPERAMIDE HCL 2 MG CAPSULE PO PRN (13:18)
[2020-01-05] MEDS ORDERED: guaiFENesin 200 MG/10 ML 10 ML UNIT-DOSE CUPS PO PRN (13:18)
[2020-01-05] MEDS ORDERED: MENTHOL/PHENOL 1 EACH UD MM PRN (13:18)
[2020-01-05] MEDS ORDERED: NICOTINE POLACRILEX 2 MG GUM BUC PRN (13:18)
[2020-01-05] MEDS ORDERED: P-EPHED 60MG/TRIPROLIDI 2.5MG TABLET PO PRN (13:18)
[2020-01-05] MEDS ORDERED: MAG HYDROX/AL HYDROX/SIMETH 30 ML UNIT-DOSE CUP PO PRN (13:18)
[2020-01-05] MEDS ORDERED: MAGNESIUM CITRATE 300 ML BOTTLE PO PRN (13:18)
[2020-01-05] MEDS: ACETAMINOPHEN 325 MG TABLET (FP) PO PRN (15:22)
[2020-01-05] MEDS: metFORMIN HCL 500 MG TABLET (FP) PO SCH (16:54)
[2020-01-05] MEDS: MELATONIN 5 MG TABLETS PO SCH (21:20)
[2020-01-05] MEDS: THIAMINE HCL 100 MG TABLET (FP) PO SCH (21:20)
[2020-01-05] MEDS: ATORVASTATIN CA 20 MG TABLET (FP) PO SCH (21:21)
[2020-01-05] MEDS: INSULIN (LEVEMIR) 100 UNITS/ML UNITS SQ SCH (21:21)
[2020-01-05] MEDS: GABAPENTIN 300 MG CAPSULE PO SCH (21:22)
[2020-01-05] MEDS: IBUPROFEN 400 MG TABLET (FP) PO PRN (21:31)
[2020-01-05] MEDS ORDERED: PT OWN MED DRAWER 7, Y5N ONE (22:37)
[2020-01-06] MEDS ORDERED: PT OWN MED DRAWER 7, Y5N ONE ×3 (03:15→22:03)
[2020-01-06] MEDS: metFORMIN HCL 500 MG TABLET (FP) PO SCH ×2 (06:22→21:16)
[2020-01-06] MEDS: GLIMEPIRIDE 4 MG TABLET PO SCH (06:22)
[2020-01-06] MEDS: IBUPROFEN 400 MG TABLET (FP) PO PRN ×2 (06:30→17:58)
[2020-01-06] MEDS: GABAPENTIN 300 MG CAPSULE PO SCH ×2 (09:50→21:14)
[2020-01-06] MEDS: ASPIRIN 81 MG CHEWABLE TABLETS PO SCH (09:50)
[2020-01-06] MEDS: PANTOPRAZOLE 20 MG TABLET PO SCH (09:51)
[2020-01-06] MEDS: PRENATAL VITAMINS W/ FOLIC ACID TABLET (FP) PO SCH (09:51)
[2020-01-06] MEDS: LISINOPRIL 5 MG TABLET (FP) PO SCH (09:51)
[2020-01-06] MEDS ORDERED: LIDOCAINE HCL 76.5 GM TP SCH (10:00)
[2020-01-06] MEDS ORDERED: NICOTINE 7 MG/24 HOURS TOPICAL PATCH TD SCH (10:00)
[2020-01-06] MEDS: INSULIN SLIDING SCALE (NOVOLOG) 1 VIAL SQ SCH ×3 (11:38→21:20)
[2020-01-06] MEDS ORDERED: INSULIN (NOVOLOG) ASPART 100 UNITS/ML 10ML VIAL ONE ×2 (12:00→16:42)
[2020-01-06] MEDS: MAGNESIUM HYDROX 2400MG/30ML ORAL SUSPENSION 30 ML CUP PO PRN (14:07)
[2020-01-06] MEDS: MELATONIN 5 MG TABLETS PO SCH (21:14)
[2020-01-06] MEDS: THIAMINE HCL 100 MG TABLET (FP) PO SCH (21:14)
[2020-01-06] MEDS: ATORVASTATIN CA 20 MG TABLET (FP) PO SCH (21:14)
[2020-01-06] MEDS: INSULIN (LEVEMIR) 100 UNITS/ML UNITS SQ SCH (21:22)
[2020-01-06] MEDS: LIDOCAINE HCL TP SCH (22:00)
[2020-01-07] MEDS: metFORMIN HCL 500 MG TABLET (FP) PO SCH ×2 (06:14→21:08)
[2020-01-07] MEDS: LIDOCAINE HCL TP SCH ×2 (06:14→21:09)
[2020-01-07] MEDS: GLIMEPIRIDE 4 MG TABLET PO SCH (06:14)
[2020-01-07] MEDS: IBUPROFEN 400 MG TABLET (FP) PO PRN ×3 (06:16→21:14)
[2020-01-07] MEDS: INSULIN SLIDING SCALE (NOVOLOG) 1 VIAL SQ SCH ×4 (07:29→21:12)
[2020-01-07] MEDS ORDERED: INSULIN (NOVOLOG) ASPART 100 UNITS/ML 10ML VIAL ONE ×4 (07:35→21:46)
[2020-01-07] MEDS: GABAPENTIN 300 MG CAPSULE PO SCH ×2 (09:57→21:08)
[2020-01-07] MEDS: ASPIRIN 81 MG CHEWABLE TABLETS PO SCH (09:57)
[2020-01-07] MEDS: PRENATAL VITAMINS W/ FOLIC ACID TABLET (FP) PO SCH (09:57)
[2020-01-07] MEDS: PANTOPRAZOLE 20 MG TABLET PO SCH (09:58)
[2020-01-07] MEDS: LISINOPRIL 5 MG TABLET (FP) PO SCH (09:58)
[2020-01-07] MEDS: MELATONIN 5 MG TABLETS PO SCH (21:07)
[2020-01-07] MEDS: INSULIN (LEVEMIR) 100 UNITS/ML UNITS SQ SCH (21:07)
[2020-01-07] MEDS: THIAMINE HCL 100 MG TABLET (FP) PO SCH (21:07)
[2020-01-07] MEDS: ATORVASTATIN CA 20 MG TABLET (FP) PO SCH (21:08)
[2020-01-07] MEDS: CARBAMIDE PEROXIDE 6.5% OTIC 15 ML BOTTLE AS SCH (21:08)
[2020-01-07] MEDS ORDERED: INSULIN (LEVEMIR) 100 UNITS/ML UNITS SQ ONE (21:47)
[2020-01-08] MEDS: IBUPROFEN 400 MG TABLET (FP) PO PRN ×2 (06:12→13:53)
[2020-01-08] MEDS: LIDOCAINE HCL TP SCH ×2 (06:12→21:17)
[2020-01-08] MEDS: metFORMIN HCL 500 MG TABLET (FP) PO SCH ×2 (06:12→21:11)
[2020-01-08] MEDS: GLIMEPIRIDE 4 MG TABLET PO SCH (06:12)
[2020-01-08] MEDS: INSULIN SLIDING SCALE (NOVOLOG) 1 VIAL SQ SCH ×4 (07:40→21:13)
[2020-01-08] MEDS ORDERED: INSULIN (NOVOLOG) ASPART 100 UNITS/ML 10ML VIAL ONE ×3 (07:43→21:57)
[2020-01-08] MEDS: ASPIRIN 81 MG CHEWABLE TABLETS PO SCH (09:48)
[2020-01-08] MEDS: LISINOPRIL 5 MG TABLET (FP) PO SCH (09:49)
[2020-01-08] MEDS: PRENATAL VITAMINS W/ FOLIC ACID TABLET (FP) PO SCH (09:49)
[2020-01-08] MEDS: PANTOPRAZOLE 20 MG TABLET PO SCH (09:49)
[2020-01-08] MEDS: GABAPENTIN 300 MG CAPSULE PO SCH ×2 (09:49→21:11)
[2020-01-08] MEDS: CARBAMIDE PEROXIDE 6.5% OTIC 15 ML BOTTLE AS SCH ×2 (09:50→21:15)
[2020-01-08] MEDS: ACETAMINOPHEN 325 MG TABLET (FP) PO PRN ×2 (09:52→18:05)
[2020-01-08] MEDS ORDERED: LIDOCAINE 2.5%/PRILOCAINE 2.5% (5 Gram/TUBE) TP SCH (10:00)
[2020-01-08] MEDS ORDERED: PT OWN MED DRAWER 7, Y5N ONE ×2 (10:07→15:59)
--- NOTE | 2020-01-08 13:26 | PN ---
S Progress Note Note: Patient with c/o burning and pain on bottoms of feet. HPI: Hx of DM2; treats pain with aspercream, which has finished. P/E; General: no apparent distress Extremities: feet: skin intact, no breaks, rashes, sores, lesions noted MSK: full weight bearing Neuro: CN 2-12 intact, feet with decreased sensitivity to sharp/soft touch Vital Signs Period Temp Pulse Resp BP Sys/Reis Pulse Ox Last 24 Hr 97.1 F 77-85 18 147-154/83-88 97-99 Laboratory Last Values POC Glucometer 273 UNITS (80-120) 01/08/20 11:37 A/P Peripheral neuropathy r/t DM2: Discussed case with pharmacist. Emla was ordered ([facility] does not carry aspercream).
[2020-01-08] MEDS: LIDOCAINE 2.5%/PRILOCAINE 2.5% (5 Gram/TUBE) TP SCH (15:34)
[2020-01-08] MEDS: THIAMINE HCL 100 MG TABLET (FP) PO SCH (21:10)
[2020-01-08] MEDS: MELATONIN 5 MG TABLETS PO SCH (21:10)
[2020-01-08] MEDS: ATORVASTATIN CA 20 MG TABLET (FP) PO SCH (21:11)
[2020-01-08] MEDS: INSULIN (LEVEMIR) 100 UNITS/ML UNITS SQ SCH (21:13)
[2020-01-08] MEDS ORDERED: INSULIN (LEVEMIR) 100 UNITS/ML UNITS SQ ONE (21:55)
[2020-01-09] MEDS ORDERED: PT OWN MED DRAWER 7, Y5N ONE ×2 (05:19→10:49)
[2020-01-09] MEDS: ACETAMINOPHEN 325 MG TABLET (FP) PO PRN ×2 (06:29→21:41)
[2020-01-09] MEDS: GLIMEPIRIDE 4 MG TABLET PO SCH (06:29)
[2020-01-09] MEDS: metFORMIN HCL 500 MG TABLET (FP) PO SCH ×2 (06:29→21:33)
[2020-01-09] MEDS: INSULIN SLIDING SCALE (NOVOLOG) 1 VIAL SQ SCH ×5 (06:30→21:45)
[2020-01-09] MEDS: LIDOCAINE HCL TP SCH ×2 (07:57→21:43)
[2020-01-09] MEDS: CARBAMIDE PEROXIDE 6.5% OTIC 15 ML BOTTLE AS SCH ×2 (10:06→21:43)
[2020-01-09] MEDS: ASPIRIN 81 MG CHEWABLE TABLETS PO SCH (10:07)
[2020-01-09] MEDS: GABAPENTIN 300 MG CAPSULE PO SCH ×2 (10:07→21:33)
[2020-01-09] MEDS: LIDOCAINE 2.5%/PRILOCAINE 2.5% (5 Gram/TUBE) TP SCH (10:07)
[2020-01-09] MEDS: PANTOPRAZOLE 20 MG TABLET PO SCH (10:08)
[2020-01-09] MEDS: LISINOPRIL 5 MG TABLET (FP) PO SCH (10:08)
[2020-01-09] MEDS: PRENATAL VITAMINS W/ FOLIC ACID TABLET (FP) PO SCH (10:08)
[2020-01-09] MEDS: IBUPROFEN 400 MG TABLET (FP) PO PRN ×2 (10:09→16:44)
[2020-01-09] MEDS ORDERED: INSULIN (NOVOLOG) ASPART 100 UNITS/ML 10ML VIAL ONE ×3 (11:53→23:30)
[2020-01-09] MEDS: INSULIN (LEVEMIR) 100 UNITS/ML UNITS SQ SCH (21:33)
[2020-01-09] MEDS: MELATONIN 5 MG TABLETS PO SCH (21:33)
[2020-01-09] MEDS: ATORVASTATIN CA 20 MG TABLET (FP) PO SCH (21:34)
[2020-01-09] MEDS: THIAMINE HCL 100 MG TABLET (FP) PO SCH (21:42)
[2020-01-10] MEDS ORDERED: PT OWN MED DRAWER 7, Y5N ONE ×7 (03:24→22:17)
[2020-01-10] MEDS: LIDOCAINE HCL TP SCH ×2 (06:17→21:46)
[2020-01-10] MEDS: metFORMIN HCL 500 MG TABLET (FP) PO SCH ×2 (06:18→21:44)
[2020-01-10] MEDS: GLIMEPIRIDE 4 MG TABLET PO SCH (06:18)
[2020-01-10] MEDS: INSULIN SLIDING SCALE (NOVOLOG) 1 VIAL SQ SCH ×4 (07:10→22:12)
[2020-01-10] MEDS: IBUPROFEN 400 MG TABLET (FP) PO PRN ×3 (07:10→19:51)
[2020-01-10] MEDS ORDERED: INSULIN (NOVOLOG) ASPART 100 UNITS/ML 10ML VIAL ONE ×4 (07:11→22:11)
[2020-01-10] MEDS: ASPIRIN 81 MG CHEWABLE TABLETS PO SCH (09:29)
[2020-01-10] MEDS: GABAPENTIN 300 MG CAPSULE PO SCH ×2 (09:30→21:44)
[2020-01-10] MEDS: CARBAMIDE PEROXIDE 6.5% OTIC 15 ML BOTTLE AS SCH ×2 (09:30→21:43)
[2020-01-10] MEDS: PRENATAL VITAMINS W/ FOLIC ACID TABLET (FP) PO SCH (09:30)
[2020-01-10] MEDS: LIDOCAINE 2.5%/PRILOCAINE 2.5% (5 Gram/TUBE) TP SCH (09:30)
[2020-01-10] MEDS: PANTOPRAZOLE 20 MG TABLET PO SCH (09:31)
[2020-01-10] MEDS: LISINOPRIL 5 MG TABLET (FP) PO SCH (09:31)
[2020-01-10] MEDS: ACETAMINOPHEN 325 MG TABLET (FP) PO PRN (09:32)
[2020-01-10] MEDS ORDERED: LISINOPRIL 5 MG TABLET (FP) PO ONE (14:46)
[2020-01-10] MEDS: ATORVASTATIN CA 20 MG TABLET (FP) PO SCH (21:44)
[2020-01-10] MEDS: THIAMINE HCL 100 MG TABLET (FP) PO SCH (21:44)
[2020-01-10] MEDS: INSULIN (LEVEMIR) 100 UNITS/ML UNITS SQ SCH (22:13)
[2020-01-10] MEDS: MELATONIN 5 MG TABLETS PO SCH (22:13)
[2020-01-11] MEDS: LIDOCAINE HCL TP SCH ×2 (06:12→21:40)
[2020-01-11] MEDS: INSULIN SLIDING SCALE (NOVOLOG) 1 VIAL SQ SCH ×4 (06:13→21:42)
[2020-01-11] MEDS: metFORMIN HCL 500 MG TABLET (FP) PO SCH ×2 (06:14→21:39)
[2020-01-11] MEDS: IBUPROFEN 400 MG TABLET (FP) PO PRN ×2 (06:14→15:37)
[2020-01-11] MEDS: GLIMEPIRIDE 4 MG TABLET PO SCH (06:14)
[2020-01-11] MEDS: ASPIRIN 81 MG CHEWABLE TABLETS PO SCH (09:37)
[2020-01-11] MEDS: CARBAMIDE PEROXIDE 6.5% OTIC 15 ML BOTTLE AS SCH ×2 (09:37→21:38)
[2020-01-11] MEDS: LIDOCAINE 2.5%/PRILOCAINE 2.5% (5 Gram/TUBE) TP SCH (09:38)
[2020-01-11] MEDS: GABAPENTIN 300 MG CAPSULE PO SCH ×2 (09:38→21:39)
[2020-01-11] MEDS: PANTOPRAZOLE 20 MG TABLET PO SCH (09:39)
[2020-01-11] MEDS: LISINOPRIL 5 MG TABLET (FP) PO SCH (09:39)
[2020-01-11] MEDS: PRENATAL VITAMINS W/ FOLIC ACID TABLET (FP) PO SCH (09:39)
[2020-01-11] MEDS: ACETAMINOPHEN 325 MG TABLET (FP) PO PRN ×2 (11:12→23:18)
[2020-01-11] MEDS: MAGNESIUM HYDROX 2400MG/30ML ORAL SUSPENSION 30 ML CUP PO PRN (11:13)
[2020-01-11] MEDS ORDERED: INSULIN (NOVOLOG) ASPART 100 UNITS/ML 10ML VIAL ONE ×3 (12:05→20:32)
[2020-01-11] MEDS ORDERED: PT OWN MED DRAWER 7, Y5N ONE (19:37)
[2020-01-11] MEDS: ATORVASTATIN CA 20 MG TABLET (FP) PO SCH (21:39)
[2020-01-11] MEDS: THIAMINE HCL 100 MG TABLET (FP) PO SCH (21:39)
[2020-01-11] MEDS: MELATONIN 5 MG TABLETS PO SCH (21:41)
[2020-01-11] MEDS: INSULIN (LEVEMIR) 100 UNITS/ML UNITS SQ SCH (21:44)
[2020-01-11] MEDS: hydrOXYzine PAMOATE 25 MG CAPSULE (FP) PO PRN (21:46)
[2020-01-12] MEDS: LIDOCAINE HCL TP SCH ×2 (06:36→21:41)
[2020-01-12] MEDS: metFORMIN HCL 500 MG TABLET (FP) PO SCH ×2 (06:37→21:40)
[2020-01-12] MEDS: GLIMEPIRIDE 4 MG TABLET PO SCH (06:37)
[2020-01-12] MEDS: INSULIN SLIDING SCALE (NOVOLOG) 1 VIAL SQ SCH ×4 (06:37→21:44)
[2020-01-12] MEDS: IBUPROFEN 400 MG TABLET (FP) PO PRN ×3 (06:38→21:41)
[2020-01-12] MEDS ORDERED: PT OWN MED DRAWER 7, Y5N ONE (10:20)
[2020-01-12] MEDS: LIDOCAINE 2.5%/PRILOCAINE 2.5% (5 Gram/TUBE) TP SCH (10:20)
[2020-01-12] MEDS: GABAPENTIN 300 MG CAPSULE PO SCH ×2 (10:21→21:40)
[2020-01-12] MEDS: CARBAMIDE PEROXIDE 6.5% OTIC 15 ML BOTTLE AS SCH ×2 (10:21→21:41)
[2020-01-12] MEDS: ASPIRIN 81 MG CHEWABLE TABLETS PO SCH (10:21)
[2020-01-12] MEDS: PRENATAL VITAMINS W/ FOLIC ACID TABLET (FP) PO SCH (10:22)
[2020-01-12] MEDS: LISINOPRIL 5 MG TABLET (FP) PO SCH (10:22)
[2020-01-12] MEDS: ACETAMINOPHEN 325 MG TABLET (FP) PO PRN ×2 (10:22→16:59)
[2020-01-12] MEDS: PANTOPRAZOLE 20 MG TABLET PO SCH (11:00)
[2020-01-12] MEDS ORDERED: INSULIN (NOVOLOG) ASPART 100 UNITS/ML 10ML VIAL ONE ×3 (11:47→22:53)
[2020-01-12] MEDS ORDERED: cloNIDine HCL 0.1 MG TABLET PO PRN (12:52)
--- NOTE | 2020-01-12 13:38 | PN ---
[facility] Progress Note Note: Patient c/o elevated blood pressure and headaches. He states no relief from headache with APAP/IBU. He is currently treated with Lisinopril 10mg daily for HTN. Has hx of ETOH use and DM. Vital Signs (72 hours) 01/09/20 01/09/20 01/10/20 14:30 19:51 07:04 Temperature 97.1 F L Pulse Rate 79 Respiratory 16 Rate Blood Pressure 128/76 O2 Sat by Pulse 98 97 97 Oximetry (%) 01/10/20 01/10/20 01/10/20 08:30 14:39 20:38 Temperature 97.1 F L Pulse Rate 76 85 Respiratory 19 18 Rate Blood Pressure 150/75 164/84 O2 Sat by Pulse 97 97 Oximetry (%) 01/11/20 01/11/20 01/11/20 07:34 08:30 14:30 Temperature 97.0 F L Pulse Rate 78 85 Respiratory 18 18 Rate Blood Pressure 128/70 140/78 O2 Sat by Pulse 98 97 Oximetry (%) 01/11/20 01/11/20 01/11/20 20:15 20:27 23:11 Temperature Pulse Rate 73 Respiratory Rate Blood Pressure 160/85 159/86 O2 Sat by Pulse 96 Oximetry (%) 01/12/20 01/12/20 07:05 09:21 Temperature 97.3 F L Pulse Rate 83 80 Respiratory 16 Rate Blood Pressure 119/79 120/75 O2 Sat by Pulse 98 Oximetry (%) PE alert and oriented x 3 skin warm and dry neck supple, no jvd in no acute distress ext full rom, amb ad vic no tremors A/P: Hx of HTN DM ETOH dependence BP stable today will continue Lisinopril 10mg daily add clonidine 0.1mg prn QD for BP 140/90 or greater continue to monitor clinically
[2020-01-12] MEDS: hydrOXYzine PAMOATE 25 MG CAPSULE (FP) PO PRN (21:40)
[2020-01-12] MEDS: MELATONIN 5 MG TABLETS PO SCH (21:40)
[2020-01-12] MEDS: ATORVASTATIN CA 20 MG TABLET (FP) PO SCH (21:40)
[2020-01-12] MEDS: THIAMINE HCL 100 MG TABLET (FP) PO SCH (21:40)
[2020-01-12] MEDS: INSULIN (LEVEMIR) 100 UNITS/ML UNITS SQ SCH (21:40)
[2020-01-12] MEDS ORDERED: INSULIN (LEVEMIR) 100 UNITS/ML UNITS SQ ONE (22:53)
[2020-01-12 23:31] VITALS: TEMP 97.5
[2020-01-13] MEDS ORDERED: PT OWN MED DRAWER 7, Y5N ONE (05:21)
[2020-01-13] MEDS: ACETAMINOPHEN 325 MG TABLET (FP) PO PRN ×2 (06:33→21:35)
[2020-01-13] MEDS: INSULIN SLIDING SCALE (NOVOLOG) 1 VIAL SQ SCH ×4 (07:12→21:39)
[2020-01-13] MEDS: metFORMIN HCL 500 MG TABLET (FP) PO SCH ×2 (07:13→21:34)
[2020-01-13] MEDS: GLIMEPIRIDE 4 MG TABLET PO SCH (07:13)
[2020-01-13] MEDS: LIDOCAINE HCL TP SCH (07:13)
[2020-01-13] MEDS: MAGNESIUM HYDROX 2400MG/30ML ORAL SUSPENSION 30 ML CUP PO PRN (09:00)
[2020-01-13] MEDS: GABAPENTIN 300 MG CAPSULE PO SCH ×2 (09:00→21:35)
[2020-01-13] MEDS: ASPIRIN 81 MG CHEWABLE TABLETS PO SCH (09:00)
[2020-01-13] MEDS: LIDOCAINE 2.5%/PRILOCAINE 2.5% (5 Gram/TUBE) TP SCH (09:01)
[2020-01-13] MEDS: LISINOPRIL 5 MG TABLET (FP) PO SCH (09:01)
[2020-01-13] MEDS: PANTOPRAZOLE 20 MG TABLET PO SCH (09:01)
[2020-01-13] MEDS: PRENATAL VITAMINS W/ FOLIC ACID TABLET (FP) PO SCH (09:01)
[2020-01-13] MEDS: IBUPROFEN 400 MG TABLET (FP) PO PRN ×2 (09:02→16:47)
[2020-01-13] MEDS: CARBAMIDE PEROXIDE 6.5% OTIC 15 ML BOTTLE AS SCH ×2 (09:25→21:38)
[2020-01-13] MEDS ORDERED: INSULIN (NOVOLOG) ASPART 100 UNITS/ML 10ML VIAL ONE ×3 (11:44→22:17)
--- NOTE | 2020-01-13 15:54 | DS ---
[facility] Rehab Discharge Summary - [facility] Rehab Discharge Summary Admission Date: 01/05/20 Discharge Date: 01/14/20 - History Present History: Alcohol dependence Pertinent Past History: Patient is a 54 y/o M who presents for alcohol use treatment. Patient endorses he consumes six 24 oz beer bottles per day; last drink was 9 am this morning. Patient first started to drink alcohol when he was 16 years old. Patient states he needs an eyeopener. PMH HTN, IDDM, HLD, GERD SocialHx- Former Tobacco Smoker 1 PPD (quit 20 years ago), Denies any illicit drug use. SurgHx- LAP Cholecystectomy (2 years ago), Pilonidal cyst removal. - Discharge Physical Exam Vital Signs: Vital Signs Temperature 97.5 F L 01/13/20 07:12 Pulse Rate 91 H 01/13/20 09:10 Respiratory Rate 18 01/13/20 07:12 Blood Pressure 140/84 01/13/20 09:10 O2 Sat by Pulse Oximetry (%) 97 01/13/20 14:06 Pertinent Admission Physical Exam Findings: General: no apparent distress HEENTM: normocephalic, PERRLA, EOMI NEck: supple Resp: Respirations unlabored, clear, no use of accessory muscles ABD: +BS MSK: full weight bearing, steady gait Neuro: A+OX4, Muscle strength equal bilaterally - Treatment Discharge Condition: Outpatient referral accepted (Patient will go to [facility]. medically stable for discharge.) Hospital Course: patient attended groups, had 1:1 with his counselor, and was seen by the psychiatric service. He was adherent to his medication regimen and his treatment plan. - Medication Discharge Medications: Ambulatory Orders metFORMIN HCL [Glucophage] 1,000 mg PO BID 12/21/14 Aspirin [ASA -] 81 mg PO DAILY 12/30/19 Atorvastatin Ca [Lipitor] 20 mg PO HS 12/30/19 Gabapentin [Neurontin] 600 mg PO BID 12/30/19 Glimepiride [Amaryl -] 4 mg PO DAILY@0700 12/30/19 Insulin Detemir [Levemir Flextouch] 20 unit SQ HS 12/30/19 Lisinopril 5 mg PO DAILY 12/30/19 Nortriptyline HCl 75 mg PO HS 12/30/19 Omeprazole Magnesium [Prilosec Otc] 20 mg PO DAILY 01/02/20 Lidocaine HCl [Aspercreme] 76.5 gm TP DAILY 01/05/20 Patient's Own Medication [Patient's Own Med (Non-Formulary)] 1 each TP HS PRN #1 med 01/13/20 - Medication-Assisted Treatment (MAT) Medication-Assisted Treatment (MAT): No - Discharge Instructions Diet, activity, other medical instructions: Diet: as tolerated Activity: as tolerated Other medical instructions: Please keep aftercare appointment. - Diagnosis (1) Alcohol dependence with uncomplicated withdrawal Current Visit: No Status: Acute - Follow-up Referral Minutes to complete discharge: 15 - AMA Did Patient Leave Against Medical Advice: No
[2020-01-13] MEDS: hydrOXYzine PAMOATE 25 MG CAPSULE (FP) PO PRN (21:34)
[2020-01-13] MEDS: ATORVASTATIN CA 20 MG TABLET (FP) PO SCH (21:34)
[2020-01-13] MEDS: MELATONIN 5 MG TABLETS PO SCH (21:34)
[2020-01-13] MEDS: THIAMINE HCL 100 MG TABLET (FP) PO SCH (21:34)
[2020-01-13] MEDS: INSULIN (LEVEMIR) 100 UNITS/ML UNITS SQ SCH (21:37)
[2020-01-14] MEDS: INSULIN SLIDING SCALE (NOVOLOG) 1 VIAL SQ SCH (06:33)
[2020-01-14] MEDS: metFORMIN HCL 500 MG TABLET (FP) PO SCH (06:33)
[2020-01-14] MEDS: GLIMEPIRIDE 4 MG TABLET PO SCH (06:33)
[2020-01-14] MEDS: IBUPROFEN 400 MG TABLET (FP) PO PRN (06:33)
[2020-01-14 07:22] VITALS: BP 102/69; PULSE 84
[2020-01-14] MEDS: PRENATAL VITAMINS W/ FOLIC ACID TABLET (FP) PO SCH (09:16)
[2020-01-14] MEDS: ASPIRIN 81 MG CHEWABLE TABLETS PO SCH (09:17)
[2020-01-14] MEDS: PANTOPRAZOLE 20 MG TABLET PO SCH (09:17)
[2020-01-14] MEDS: GABAPENTIN 300 MG CAPSULE PO SCH (09:17)
[2020-01-14] MEDS: LISINOPRIL 5 MG TABLET (FP) PO SCH (09:17)
[2020-01-14] MEDS: CARBAMIDE PEROXIDE 6.5% OTIC 15 ML BOTTLE AS SCH (09:17)
== END 2020-01-14 09:26 | disposition home or self-care (01) | DRG 772 ==
LOC: YASAS 12:16 → Y3E 12:17
PROVIDERS: ADMIT Allergy & Immunology; ATTEND Allergy & Immunology
PROC: HZ42ZZZ Group Counseling for Substance Abuse Treatment, Cognitive-Behavioral (ICD-10-PCS; principal; 2020-01-05)
DX: F10.20 Alcohol dependence, uncomplicated (principal); F17.211 Nicotine dependence, cigarettes, in remission; E78.5 Hyperlipidemia, unspecified; E11.42 Type 2 diabetes mellitus with diabetic polyneuropathy; Z79.4 Long term (current) use of insulin; K21.9 Gastro-esophageal reflux disease without esophagitis; Z91.010 Allergy to peanuts
CPT/HCPCS: 82962

== ENCOUNTER 2022-08-27 16:47 | Inpatient (IN) | payer OTHER ==
[2022-08-27 17:31] VITALS: BMI 22.8
[2022-08-27] MEDS ORDERED: IBUPROFEN 600 MG TABLET (FP) PO PRN (18:19)
[2022-08-27] MEDS ORDERED: ACETAMINOPHEN 325 MG TABLET (FP) PO PRN (18:19)
[2022-08-27] MEDS ORDERED: MAGNESIUM HYDROX 2400MG/30ML ORAL SUSPENSION 30 ML CUP PO PRN (18:19)
[2022-08-27] MEDS ORDERED: BISMUTH SUBSALICYLATE 524 MG/30 ML PO PRN (18:19)
[2022-08-27] MEDS ORDERED: chlordiazePOXIDE HCL 25 MG CAPSULE PO PRN (18:19)
[2022-08-27] MEDS ORDERED: IBUPROFEN 400 MG TABLET (FP) PO PRN (18:19)
[2022-08-27] MEDS ORDERED: POLYETHYLENE GLYCOL (HEALTHYLAX) 3350 17 GM PACKET PO PRN (18:19)
[2022-08-27] MEDS ORDERED: MAG HYDROX/AL HYDROX/SIMETH 30 ML UNIT-DOSE CUP PO PRN (18:19)
[2022-08-27] MEDS ORDERED: BENZOCAINE/MENTHOL (CHLORASEPTIC ) LOZENGE MM PRN (18:19)
[2022-08-27] MEDS ORDERED: LOPERAMIDE HCL 2 MG CAPSULE PO PRN (18:19)
[2022-08-27] MEDS ORDERED: DICYCLOMINE HCL 10 MG CAPSULE PO PRN (18:19)
[2022-08-27] MEDS: ACETAMINOPHEN 325 MG TABLET (FP) PO PRN (20:26)
[2022-08-27] MEDS: GABAPENTIN 300 MG CAPSULE PO SCH (22:26)
[2022-08-27] MEDS: THIAMINE HCL 100 MG TABLET (FP) PO SCH (22:26)
[2022-08-27] MEDS: ATORVASTATIN CA 20 MG TABLET (FP) PO SCH (22:26)
[2022-08-27] MEDS: chlordiazePOXIDE HCL 25 MG CAPSULE PO SCH (22:26)
[2022-08-27] MEDS: MELATONIN 5 MG TABLETS PO SCH (22:26)
[2022-08-28] MEDS: chlordiazePOXIDE HCL 25 MG CAPSULE PO SCH ×4 (05:34→22:31)
[2022-08-28] MEDS: GABAPENTIN 300 MG CAPSULE PO SCH ×3 (05:34→22:30)
[2022-08-28] MEDS: metFORMIN HCL 500 MG TABLET (FP) PO SCH ×2 (06:42→16:53)
[2022-08-28] MEDS: PRENATAL VITAMINS W/ FOLIC ACID TABLET (FP) PO SCH (10:12)
[2022-08-28] MEDS: ASPIRIN 81 MG CHEWABLE TABLETS PO SCH (10:14)
[2022-08-28] MEDS: PANTOPRAZOLE 20 MG TABLET PO SCH (10:14)
[2022-08-28] MEDS: LISINOPRIL 5 MG TABLET PO SCH (10:14)
[2022-08-28] MEDS: ACETAMINOPHEN 325 MG TABLET (FP) PO PRN (10:15)
[2022-08-28 10:25] LABS: HEMATOCRIT 37.8 % (35.4-49); HEMOGLOBIN 12.7 GM/dL (11.7-16.9); MCH 31.7 pg (25.7-33.7); MCHC 33.7 g/dl (32.0-35.9); MEAN PLT VOLUME 7.6 fl (7.5-11.1); PLATELET COUNT 249 10^3/uL (134-434); RBC 4.02 M/mm3 (4.00-5.60); RDW 13.8 % (11.9-15.9); WHITE BLOOD COUNT 6.5 K/mm3 (4.0-10.0)
[2022-08-28 10:46] LABS: ALBUMIN 3.4 g/dl (3.4-5.0); CALCIUM 9.1 mg/dL (8.5-10.1)
[2022-08-28 10:47] LABS: BLOOD UREA NITROGEN 9.2 mg/dL (7-18); CREATININE 0.7 mg/dL (0.55-1.3)
[2022-08-28 10:48] LABS: BILIRUBIN,TOTAL 0.6 mg/dL (0.2-1); TOT PROT 6.6 g/dl (6.4-8.2)
[2022-08-28] MEDS: ONDANSETRON *ODT* 4 MG TABLET SL PRN ×2 (12:15→22:36)
[2022-08-28] MEDS: MELATONIN 5 MG TABLETS PO SCH (22:30)
[2022-08-28] MEDS: THIAMINE HCL 100 MG TABLET (FP) PO SCH (22:30)
[2022-08-28] MEDS: ATORVASTATIN CA 20 MG TABLET (FP) PO SCH (22:30)
[2022-08-28] MEDS: INSULIN SLIDING SCALE (NOVOLOG) 1 VIAL SQ SCH (22:57)
[2022-08-29] MEDS: METHOCARBAMOL 500 MG TABLET PO PRN (01:31)
[2022-08-29] MEDS: hydrOXYzine PAMOATE 25 MG CAPSULE (FP) PO PRN (01:31)
[2022-08-29] MEDS: GABAPENTIN 300 MG CAPSULE PO SCH ×3 (05:24→22:15)
[2022-08-29] MEDS: chlordiazePOXIDE HCL 25 MG CAPSULE PO SCH ×4 (05:24→22:15)
[2022-08-29] MEDS: ONDANSETRON *ODT* 4 MG TABLET SL PRN ×2 (05:26→10:14)
[2022-08-29] MEDS: metFORMIN HCL 500 MG TABLET (FP) PO SCH ×2 (06:33→17:17)
[2022-08-29] MEDS: INSULIN SLIDING SCALE (NOVOLOG) 1 VIAL SQ SCH ×4 (07:14→22:18)
[2022-08-29] MEDS: ASPIRIN 81 MG CHEWABLE TABLETS PO SCH (10:13)
[2022-08-29] MEDS: PANTOPRAZOLE 20 MG TABLET PO SCH (10:13)
[2022-08-29] MEDS: LISINOPRIL 5 MG TABLET PO SCH (10:14)
[2022-08-29] MEDS: PRENATAL VITAMINS W/ FOLIC ACID TABLET (FP) PO SCH (10:14)
[2022-08-29] MEDS: ACETAMINOPHEN 325 MG TABLET (FP) PO PRN (13:21)
[2022-08-29] MEDS ORDERED: INSULIN (NOVOLOG) ASPART 100 UNITS/ML 10ML VIAL ONE ×2 (16:34→22:13)
[2022-08-29] MEDS ORDERED: METHYL SALICYLATE/MENTHOL OINT 30 GM TUBE TP PRN (18:51)
[2022-08-29] MEDS ORDERED: NORTRIPTYLINE HCL 25 MG CAPSULE PO SCH (22:00)
[2022-08-29] MEDS ORDERED: INSULIN (LEVEMIR) 100 UNITS/ML UNITS SQ SCH (22:00)
[2022-08-29] MEDS: THIAMINE HCL 100 MG TABLET (FP) PO SCH (22:15)
[2022-08-29] MEDS: ATORVASTATIN CA 20 MG TABLET (FP) PO SCH (22:15)
[2022-08-29] MEDS: MELATONIN 5 MG TABLETS PO SCH (22:18)
[2022-08-30] MEDS ORDERED: chlordiazePOXIDE HCL 10 MG CAPSULE PO PRN
[2022-08-30] MEDS: ACETAMINOPHEN 325 MG TABLET (FP) PO PRN ×3 (05:22→17:46)
[2022-08-30] MEDS: GABAPENTIN 300 MG CAPSULE PO SCH ×3 (05:22→22:25)
[2022-08-30] MEDS: chlordiazePOXIDE HCL 10 MG CAPSULE PO SCH ×4 (05:22→22:26)
[2022-08-30] MEDS: ONDANSETRON *ODT* 4 MG TABLET SL PRN (05:24)
[2022-08-30] MEDS: metFORMIN HCL 500 MG TABLET (FP) PO SCH ×2 (06:13→17:30)
[2022-08-30] MEDS: INSULIN SLIDING SCALE (NOVOLOG) 1 VIAL SQ SCH ×4 (06:24→22:31)
[2022-08-30] MEDS: GLIMEPIRIDE 4 MG TABLET PO SCH (07:51)
[2022-08-30] MEDS: PRENATAL VITAMINS W/ FOLIC ACID TABLET (FP) PO SCH (10:09)
[2022-08-30] MEDS: PANTOPRAZOLE 20 MG TABLET PO SCH (10:09)
[2022-08-30] MEDS: ASPIRIN 81 MG CHEWABLE TABLETS PO SCH (10:10)
[2022-08-30] MEDS: LISINOPRIL 5 MG TABLET PO SCH (10:10)
[2022-08-30] MEDS ORDERED: INSULIN (NOVOLOG) ASPART 100 UNITS/ML 10ML VIAL ONE ×2 (11:25→22:25)
[2022-08-30] MEDS: NICOTINE 10 MG CARTRIDGE (INHALER) IH PRN (19:14)
[2022-08-30] MEDS: hydrOXYzine PAMOATE 25 MG CAPSULE (FP) PO PRN (20:26)
[2022-08-30] MEDS ORDERED: INSULIN (LEVEMIR) 100 UNITS/ML UNITS SQ SCH (22:00)
[2022-08-30] MEDS: THIAMINE HCL 100 MG TABLET (FP) PO SCH (22:25)
[2022-08-30] MEDS: ATORVASTATIN CA 20 MG TABLET (FP) PO SCH (22:27)
[2022-08-30] MEDS: MELATONIN 5 MG TABLETS PO SCH (22:28)
[2022-08-31] MEDS: chlordiazePOXIDE HCL 10 MG CAPSULE PO SCH ×2 (05:43→17:35)
[2022-08-31] MEDS: GABAPENTIN 300 MG CAPSULE PO SCH ×3 (05:43→22:22)
[2022-08-31] MEDS: ACETAMINOPHEN 325 MG TABLET (FP) PO PRN ×2 (05:44→17:38)
[2022-08-31] MEDS: ONDANSETRON *ODT* 4 MG TABLET SL PRN (05:47)
[2022-08-31] MEDS ORDERED: INSULIN (NOVOLOG) ASPART 100 UNITS/ML 10ML VIAL ONE ×4 (05:53→20:32)
[2022-08-31] MEDS: GLIMEPIRIDE 4 MG TABLET PO SCH (06:14)
[2022-08-31] MEDS: metFORMIN HCL 500 MG TABLET (FP) PO SCH ×2 (06:14→16:36)
[2022-08-31] MEDS: INSULIN SLIDING SCALE (NOVOLOG) 1 VIAL SQ SCH ×4 (06:14→22:18)
[2022-08-31] MEDS: PANTOPRAZOLE 20 MG TABLET PO SCH (10:16)
[2022-08-31] MEDS: ASPIRIN 81 MG CHEWABLE TABLETS PO SCH (10:16)
[2022-08-31] MEDS: LISINOPRIL 5 MG TABLET PO SCH (10:16)
[2022-08-31] MEDS: PRENATAL VITAMINS W/ FOLIC ACID TABLET (FP) PO SCH (10:16)
[2022-08-31] MEDS ORDERED: INSULIN (LEVEMIR) 100 UNITS/ML UNITS SQ ONE (20:32)
[2022-08-31] MEDS ORDERED: INSULIN (LEVEMIR) 100 UNITS/ML UNITS SQ SCH (22:00)
[2022-08-31] MEDS: MELATONIN 5 MG TABLETS PO SCH (22:20)
[2022-08-31] MEDS: ATORVASTATIN CA 20 MG TABLET (FP) PO SCH (22:21)
[2022-08-31] MEDS: METHOCARBAMOL 500 MG TABLET PO PRN (22:22)
[2022-08-31] MEDS: THIAMINE HCL 100 MG TABLET (FP) PO SCH (22:22)
[2022-08-31] MEDS: hydrOXYzine PAMOATE 25 MG CAPSULE (FP) PO PRN (22:23)
[2022-09-01] MEDS ORDERED: chlordiazePOXIDE HCL 10 MG CAPSULE PO ONE (05:00)
[2022-09-01] MEDS: GABAPENTIN 300 MG CAPSULE PO SCH (05:51)
[2022-09-01] MEDS: GLIMEPIRIDE 4 MG TABLET PO SCH (07:05)
[2022-09-01] MEDS: metFORMIN HCL 500 MG TABLET (FP) PO SCH (07:05)
[2022-09-01] MEDS: INSULIN SLIDING SCALE (NOVOLOG) 1 VIAL SQ SCH ×2 (07:06→11:36)
[2022-09-01 09:02] VITALS: BP 114/70; PULSE 102; RESP 20; TEMP 97.3
[2022-09-01] MEDS: PRENATAL VITAMINS W/ FOLIC ACID TABLET (FP) PO SCH (09:38)
[2022-09-01] MEDS: ASPIRIN 81 MG CHEWABLE TABLETS PO SCH (09:38)
[2022-09-01] MEDS: LISINOPRIL 5 MG TABLET PO SCH (09:38)
[2022-09-01] MEDS: PANTOPRAZOLE 20 MG TABLET PO SCH (09:38)
[2022-09-01] MEDS ORDERED: INSULIN (NOVOLOG) ASPART 100 UNITS/ML 10ML VIAL ONE (11:37)
[2022-09-01] MEDS: NICOTINE 10 MG CARTRIDGE (INHALER) IH PRN (12:32)
== END 2022-09-01 12:47 | disposition other institution (70) | DRG 775 ==
LOC: YASAS 16:47 → Y6N 19:25
PROVIDERS: ADMIT Allergy & Immunology; ATTEND Surgery
PROC: HZ2ZZZZ Detoxification Services for Substance Abuse Treatment (ICD-10-PCS; principal; 2022-08-27)
DX: F10.230 Alcohol dependence with withdrawal, uncomplicated (principal); F17.210 Nicotine dependence, cigarettes, uncomplicated; F10.282 Alcohol dependence with alcohol-induced sleep disorder; F10.24 Alcohol dependence with alcohol-induced mood disorder; F41.9 Anxiety disorder, unspecified; G47.00 Insomnia, unspecified; I10 Essential (primary) hypertension; E78.5 Hyperlipidemia, unspecified; E11.42 Type 2 diabetes mellitus with diabetic polyneuropathy; Z79.4 Long term (current) use of insulin
CPT/HCPCS: 36415; 71046-TC-FY; 80053; 82962; 85027; 86780; 87811; 93005; 93010; C9803-CS; Q0162; U0003; U0005

== ENCOUNTER 2022-09-01 13:01 | Inpatient (IN) | payer OTHER ==
[2022-09-01] MEDS ORDERED: BENZOCAINE/MENTHOL (CHLORASEPTIC ) LOZENGE MM PRN (14:04)
[2022-09-01] MEDS ORDERED: NALOXONE HCL 0.4 MG/ML VIAL IVPUSH PRN (14:04)
[2022-09-01] MEDS ORDERED: guaiFENesin 600 MG TABLET.ER (FP) PO PRN (14:04)
[2022-09-01] MEDS ORDERED: METHOCARBAMOL 500 MG TABLET PO PRN (14:04)
[2022-09-01] MEDS ORDERED: LOPERAMIDE HCL 2 MG CAPSULE PO PRN (14:04)
[2022-09-01] MEDS ORDERED: BENZONATATE 200 MG CAPSULE PO PRN (14:04)
[2022-09-01] MEDS ORDERED: MAG HYDROX/AL HYDROX/SIMETH 30 ML UNIT-DOSE CUP PO PRN (14:04)
[2022-09-01] MEDS ORDERED: POLYETHYLENE GLYCOL (HEALTHYLAX) 3350 17 GM PACKET PO PRN (14:04)
[2022-09-01] MEDS ORDERED: NALOXONE HCL (KLOXXADO) 8 MG SPRAY NS PRN (14:04)
[2022-09-01] MEDS: metFORMIN HCL 500 MG TABLET (FP) PO SCH (17:00)
[2022-09-01] MEDS: INSULIN SLIDING SCALE (NOVOLOG) 1 VIAL SQ SCH (17:00)
[2022-09-01] MEDS: INSULIN (LEVEMIR) 100 UNITS/ML UNITS SQ SCH (21:52)
[2022-09-01] MEDS: ATORVASTATIN CA 20 MG TABLET (FP) PO SCH (21:55)
[2022-09-01] MEDS: GABAPENTIN 300 MG CAPSULE PO SCH (21:55)
[2022-09-01] MEDS: THIAMINE HCL 100 MG TABLET (FP) PO SCH (21:56)
[2022-09-01] MEDS: MELATONIN 5 MG TABLETS PO SCH (21:56)
[2022-09-01] MEDS: ACETAMINOPHEN 325 MG TABLET (FP) PO PRN (21:57)
[2022-09-01] MEDS ORDERED: NORTRIPTYLINE HCL 75 MG PO SCH (22:00)
[2022-09-02] MEDS: INSULIN SLIDING SCALE (NOVOLOG) 1 VIAL SQ SCH ×2 (06:20→17:01)
[2022-09-02] MEDS: metFORMIN HCL 500 MG TABLET (FP) PO SCH ×2 (06:21→16:59)
[2022-09-02] MEDS: GABAPENTIN 300 MG CAPSULE PO SCH ×3 (06:21→21:18)
[2022-09-02] MEDS: GLIMEPIRIDE 4 MG TABLET PO SCH (07:07)
[2022-09-02] MEDS: PRENATAL VITAMINS W/ FOLIC ACID TABLET (FP) PO SCH (09:50)
[2022-09-02] MEDS: LISINOPRIL 5 MG TABLET PO SCH (09:50)
[2022-09-02] MEDS: PANTOPRAZOLE 20 MG TABLET PO SCH (09:50)
[2022-09-02] MEDS: ASPIRIN 81 MG CHEWABLE TABLETS PO SCH (09:50)
[2022-09-02] MEDS: ACETAMINOPHEN 325 MG TABLET (FP) PO PRN ×3 (09:51→21:19)
[2022-09-02] MEDS: ONDANSETRON *ODT* 4 MG TABLET SL PRN ×2 (09:51→17:03)
[2022-09-02] MEDS ORDERED: PATIENT'S OWN MEDICATION (NON-FORMULARY) (Omeprazole Magnesium [Prilosec Otc] 20 MG Tablet PO SCH (10:00)
[2022-09-02] MEDS: MAGNESIUM HYDROX 2400MG/30ML ORAL SUSPENSION 30 ML CUP PO PRN (10:00)
[2022-09-02] MEDS: NICOTINE 10 MG CARTRIDGE (INHALER) IH PRN (13:39)
[2022-09-02] MEDS: INSULIN (LEVEMIR) 100 UNITS/ML UNITS SQ SCH (21:16)
[2022-09-02] MEDS: THIAMINE HCL 100 MG TABLET (FP) PO SCH (21:18)
[2022-09-02] MEDS: ATORVASTATIN CA 20 MG TABLET (FP) PO SCH (21:18)
[2022-09-02] MEDS: MELATONIN 5 MG TABLETS PO SCH (21:18)
[2022-09-03] MEDS: GABAPENTIN 300 MG CAPSULE PO SCH ×3 (06:41→21:22)
[2022-09-03] MEDS: GLIMEPIRIDE 4 MG TABLET PO SCH (06:42)
[2022-09-03] MEDS: metFORMIN HCL 500 MG TABLET (FP) PO SCH ×2 (06:42→16:46)
[2022-09-03] MEDS: IBUPROFEN 600 MG TABLET (FP) PO PRN ×2 (06:43→15:27)
[2022-09-03] MEDS: INSULIN SLIDING SCALE (NOVOLOG) 1 VIAL SQ SCH ×3 (08:03→16:49)
[2022-09-03] MEDS: PRENATAL VITAMINS W/ FOLIC ACID TABLET (FP) PO SCH (09:49)
[2022-09-03] MEDS: ASPIRIN 81 MG CHEWABLE TABLETS PO SCH (09:49)
[2022-09-03] MEDS: PANTOPRAZOLE 20 MG TABLET PO SCH (09:49)
[2022-09-03] MEDS: LISINOPRIL 5 MG TABLET PO SCH (09:50)
[2022-09-03] MEDS ORDERED: INSULIN (NOVOLOG) ASPART 100 UNITS/ML 10ML VIAL ONE (12:03)
[2022-09-03] MEDS: NICOTINE 10 MG CARTRIDGE (INHALER) IH PRN (15:47)
[2022-09-03] MEDS: ONDANSETRON *ODT* 4 MG TABLET SL PRN (16:50)
[2022-09-03] MEDS: ATORVASTATIN CA 20 MG TABLET (FP) PO SCH (21:22)
[2022-09-03] MEDS: THIAMINE HCL 100 MG TABLET (FP) PO SCH (21:23)
[2022-09-03] MEDS: MELATONIN 5 MG TABLETS PO SCH (21:23)
[2022-09-03] MEDS: INSULIN (LEVEMIR) 100 UNITS/ML UNITS SQ SCH (21:24)
[2022-09-03] MEDS: METHYL SALICYLATE/MENTHOL OINT 30 GM TUBE TP PRN (23:17)
[2022-09-04] MEDS: GABAPENTIN 300 MG CAPSULE PO SCH ×3 (06:39→21:34)
[2022-09-04] MEDS: metFORMIN HCL 500 MG TABLET (FP) PO SCH ×2 (06:40→17:05)
[2022-09-04] MEDS: GLIMEPIRIDE 4 MG TABLET PO SCH (06:41)
[2022-09-04] MEDS: INSULIN SLIDING SCALE (NOVOLOG) 1 VIAL SQ SCH ×3 (06:42→17:22)
[2022-09-04] MEDS: IBUPROFEN 600 MG TABLET (FP) PO PRN ×2 (08:47→21:36)
[2022-09-04] MEDS: MAGNESIUM HYDROX 2400MG/30ML ORAL SUSPENSION 30 ML CUP PO PRN (08:48)
[2022-09-04] MEDS: ASPIRIN 81 MG CHEWABLE TABLETS PO SCH (09:48)
[2022-09-04] MEDS: PANTOPRAZOLE 20 MG TABLET PO SCH (09:49)
[2022-09-04] MEDS: LISINOPRIL 5 MG TABLET PO SCH (09:49)
[2022-09-04] MEDS: PRENATAL VITAMINS W/ FOLIC ACID TABLET (FP) PO SCH (09:49)
[2022-09-04] MEDS: ONDANSETRON *ODT* 4 MG TABLET SL PRN (09:50)
[2022-09-04] MEDS ORDERED: INSULIN (NOVOLOG) ASPART 100 UNITS/ML 10ML VIAL ONE (11:50)
[2022-09-04] MEDS: ACETAMINOPHEN 325 MG TABLET (FP) PO PRN (13:36)
[2022-09-04] MEDS: MELATONIN 5 MG TABLETS PO SCH (21:34)
[2022-09-04] MEDS: THIAMINE HCL 100 MG TABLET (FP) PO SCH (21:34)
[2022-09-04] MEDS: ATORVASTATIN CA 20 MG TABLET (FP) PO SCH (21:34)
[2022-09-04] MEDS: hydrOXYzine PAMOATE 25 MG CAPSULE (FP) PO PRN (21:34)
[2022-09-04] MEDS: INSULIN (LEVEMIR) 100 UNITS/ML UNITS SQ SCH (21:36)
[2022-09-05] MEDS: metFORMIN HCL 500 MG TABLET (FP) PO SCH ×2 (06:41→17:03)
[2022-09-05] MEDS: GLIMEPIRIDE 2 MG TABLET PO SCH (06:42)
[2022-09-05] MEDS: GABAPENTIN 300 MG CAPSULE PO SCH ×3 (06:42→21:39)
[2022-09-05] MEDS: IBUPROFEN 600 MG TABLET (FP) PO PRN (06:43)
[2022-09-05] MEDS: INSULIN SLIDING SCALE (NOVOLOG) 1 VIAL SQ SCH ×3 (07:22→17:04)
[2022-09-05] MEDS: LISINOPRIL 5 MG TABLET PO SCH (09:38)
[2022-09-05] MEDS: PRENATAL VITAMINS W/ FOLIC ACID TABLET (FP) PO SCH (09:39)
[2022-09-05] MEDS: ASPIRIN 81 MG CHEWABLE TABLETS PO SCH (09:39)
[2022-09-05] MEDS: PANTOPRAZOLE 20 MG TABLET PO SCH (09:39)
[2022-09-05] MEDS ORDERED: INSULIN (LEVEMIR) 100 UNITS/ML UNITS SQ ONE (10:00)
[2022-09-05] MEDS ORDERED: INSULIN (NOVOLOG) ASPART 100 UNITS/ML 10ML VIAL ONE (11:52)
[2022-09-05] MEDS: NICOTINE 10 MG CARTRIDGE (INHALER) IH PRN (17:54)
[2022-09-05] MEDS: INSULIN (LEVEMIR) 100 UNITS/ML UNITS SQ SCH (21:38)
[2022-09-05] MEDS: THIAMINE HCL 100 MG TABLET (FP) PO SCH (21:39)
[2022-09-05] MEDS: ATORVASTATIN CA 20 MG TABLET (FP) PO SCH (21:39)
[2022-09-05] MEDS: MELATONIN 5 MG TABLETS PO SCH (21:39)
[2022-09-05] MEDS: hydrOXYzine PAMOATE 25 MG CAPSULE (FP) PO PRN (21:39)
[2022-09-06] MEDS: GABAPENTIN 300 MG CAPSULE PO SCH ×3 (06:33→21:13)
[2022-09-06] MEDS: metFORMIN HCL 500 MG TABLET (FP) PO SCH ×2 (06:33→16:43)
[2022-09-06] MEDS: GLIMEPIRIDE 2 MG TABLET PO SCH (06:34)
[2022-09-06] MEDS: IBUPROFEN 600 MG TABLET (FP) PO PRN ×2 (06:34→21:16)
[2022-09-06] MEDS: INSULIN SLIDING SCALE (NOVOLOG) 1 VIAL SQ SCH ×3 (07:54→16:42)
[2022-09-06] MEDS ORDERED: INSULIN (NOVOLOG) ASPART 100 UNITS/ML 10ML VIAL ONE ×2 (07:59→12:00)
[2022-09-06] MEDS: ASPIRIN 81 MG CHEWABLE TABLETS PO SCH (09:48)
[2022-09-06] MEDS: PRENATAL VITAMINS W/ FOLIC ACID TABLET (FP) PO SCH (09:48)
[2022-09-06] MEDS: LISINOPRIL 5 MG TABLET PO SCH (09:48)
[2022-09-06] MEDS: PANTOPRAZOLE 20 MG TABLET PO SCH (09:49)
[2022-09-06] MEDS: ONDANSETRON *ODT* 4 MG TABLET SL PRN (09:51)
[2022-09-06] MEDS: INSULIN (LEVEMIR) 100 UNITS/ML UNITS SQ SCH ×2 (09:52→21:15)
[2022-09-06] MEDS: IBUPROFEN 400 MG TABLET (FP) PO PRN (15:26)
[2022-09-06] MEDS: METHYL SALICYLATE/MENTHOL OINT 30 GM TUBE TP PRN (15:27)
[2022-09-06] MEDS: MELATONIN 5 MG TABLETS PO SCH (21:12)
[2022-09-06] MEDS: THIAMINE HCL 100 MG TABLET (FP) PO SCH (21:12)
[2022-09-06] MEDS: ATORVASTATIN CA 20 MG TABLET (FP) PO SCH (21:13)
[2022-09-06] MEDS: hydrOXYzine PAMOATE 25 MG CAPSULE (FP) PO PRN (21:13)
[2022-09-07] MEDS: INSULIN SLIDING SCALE (NOVOLOG) 1 VIAL SQ SCH ×3 (06:24→16:31)
[2022-09-07] MEDS ORDERED: INSULIN (NOVOLOG) ASPART 100 UNITS/ML 10ML VIAL ONE ×2 (06:24→11:30)
[2022-09-07] MEDS: GLIMEPIRIDE 2 MG TABLET PO SCH (06:25)
[2022-09-07] MEDS: GABAPENTIN 300 MG CAPSULE PO SCH ×3 (06:25→21:05)
[2022-09-07] MEDS: metFORMIN HCL 500 MG TABLET (FP) PO SCH ×2 (06:25→16:32)
[2022-09-07] MEDS: ACETAMINOPHEN 325 MG TABLET (FP) PO PRN ×2 (06:26→16:33)
[2022-09-07] MEDS: INSULIN (LEVEMIR) 100 UNITS/ML UNITS SQ SCH ×2 (09:06→21:09)
[2022-09-07] MEDS: ASPIRIN 81 MG CHEWABLE TABLETS PO SCH (09:08)
[2022-09-07] MEDS: PANTOPRAZOLE 20 MG TABLET PO SCH (09:08)
[2022-09-07] MEDS: LISINOPRIL 5 MG TABLET PO SCH (09:08)
[2022-09-07] MEDS: PRENATAL VITAMINS W/ FOLIC ACID TABLET (FP) PO SCH (09:08)
[2022-09-07] MEDS: ONDANSETRON *ODT* 4 MG TABLET SL PRN ×2 (09:10→16:36)
[2022-09-07] MEDS: THIAMINE HCL 100 MG TABLET (FP) PO SCH (21:04)
[2022-09-07] MEDS: MELATONIN 5 MG TABLETS PO SCH (21:04)
[2022-09-07] MEDS: ATORVASTATIN CA 20 MG TABLET (FP) PO SCH (21:05)
[2022-09-07] MEDS: IBUPROFEN 400 MG TABLET (FP) PO PRN (21:06)
[2022-09-08] MEDS: GABAPENTIN 300 MG CAPSULE PO SCH ×3 (06:27→21:16)
[2022-09-08] MEDS: GLIMEPIRIDE 2 MG TABLET PO SCH (06:27)
[2022-09-08] MEDS: metFORMIN HCL 500 MG TABLET (FP) PO SCH ×2 (06:27→16:31)
[2022-09-08] MEDS: INSULIN SLIDING SCALE (NOVOLOG) 1 VIAL SQ SCH ×3 (06:30→16:33)
[2022-09-08] MEDS: ACETAMINOPHEN 325 MG TABLET (FP) PO PRN (08:27)
[2022-09-08] MEDS: ONDANSETRON *ODT* 4 MG TABLET SL PRN ×2 (08:27→16:34)
[2022-09-08] MEDS: ASPIRIN 81 MG CHEWABLE TABLETS PO SCH (09:41)
[2022-09-08] MEDS: INSULIN (LEVEMIR) 100 UNITS/ML UNITS SQ SCH ×2 (09:42→21:20)
[2022-09-08] MEDS: PANTOPRAZOLE 20 MG TABLET PO SCH (09:42)
[2022-09-08] MEDS: PRENATAL VITAMINS W/ FOLIC ACID TABLET (FP) PO SCH (09:42)
[2022-09-08] MEDS: LISINOPRIL 5 MG TABLET PO SCH (09:42)
[2022-09-08] MEDS ORDERED: INSULIN (NOVOLOG) ASPART 100 UNITS/ML 10ML VIAL ONE ×2 (11:58→16:30)
[2022-09-08] MEDS: IBUPROFEN 600 MG TABLET (FP) PO PRN (15:06)
[2022-09-08] MEDS: hydrOXYzine PAMOATE 25 MG CAPSULE (FP) PO PRN (21:16)
[2022-09-08] MEDS: MELATONIN 5 MG TABLETS PO SCH (21:16)
[2022-09-08] MEDS: THIAMINE HCL 100 MG TABLET (FP) PO SCH (21:16)
[2022-09-08] MEDS: ATORVASTATIN CA 20 MG TABLET (FP) PO SCH (21:16)
[2022-09-08] MEDS: IBUPROFEN 400 MG TABLET (FP) PO PRN (21:17)
[2022-09-09 06:38] VITALS: RESP 18
[2022-09-09] MEDS: GABAPENTIN 300 MG CAPSULE PO SCH ×3 (06:40→21:04)
[2022-09-09] MEDS: metFORMIN HCL 500 MG TABLET (FP) PO SCH ×2 (06:40→14:51)
[2022-09-09] MEDS: GLIMEPIRIDE 2 MG TABLET PO SCH (06:40)
[2022-09-09] MEDS: INSULIN SLIDING SCALE (NOVOLOG) 1 VIAL SQ SCH ×3 (07:57→17:39)
[2022-09-09] MEDS: NICOTINE 10 MG CARTRIDGE (INHALER) IH PRN (07:57)
[2022-09-09] MEDS ORDERED: INSULIN (NOVOLOG) ASPART 100 UNITS/ML 10ML VIAL ONE ×3 (08:01→16:46)
[2022-09-09] MEDS: INSULIN (LEVEMIR) 100 UNITS/ML UNITS SQ SCH ×2 (09:36→21:04)
[2022-09-09] MEDS: ASPIRIN 81 MG CHEWABLE TABLETS PO SCH (09:37)
[2022-09-09] MEDS: LISINOPRIL 5 MG TABLET PO SCH (09:37)
[2022-09-09] MEDS: PANTOPRAZOLE 20 MG TABLET PO SCH (09:37)
[2022-09-09] MEDS: PRENATAL VITAMINS W/ FOLIC ACID TABLET (FP) PO SCH (09:38)
[2022-09-09] MEDS: ACETAMINOPHEN 325 MG TABLET (FP) PO PRN (15:19)
[2022-09-09] MEDS: MELATONIN 5 MG TABLETS PO SCH (21:04)
[2022-09-09] MEDS: ATORVASTATIN CA 20 MG TABLET (FP) PO SCH (21:04)
[2022-09-09] MEDS: THIAMINE HCL 100 MG TABLET (FP) PO SCH (21:04)
[2022-09-09] MEDS: METHYL SALICYLATE/MENTHOL OINT 30 GM TUBE TP PRN (21:05)
[2022-09-10] MEDS: NICOTINE 10 MG CARTRIDGE (INHALER) IH PRN (06:33)
[2022-09-10] MEDS: metFORMIN HCL 500 MG TABLET (FP) PO SCH (06:38)
[2022-09-10] MEDS: GABAPENTIN 300 MG CAPSULE PO SCH (06:38)
[2022-09-10] MEDS: GLIMEPIRIDE 2 MG TABLET PO SCH (06:39)
[2022-09-10] MEDS: IBUPROFEN 600 MG TABLET (FP) PO PRN (06:41)
[2022-09-10 06:46] VITALS: TEMP 97.8
[2022-09-10] MEDS: INSULIN SLIDING SCALE (NOVOLOG) 1 VIAL SQ SCH (07:43)
[2022-09-10 09:11] VITALS: BP 111/72; PULSE 94
[2022-09-10] MEDS: INSULIN (LEVEMIR) 100 UNITS/ML UNITS SQ SCH (09:26)
[2022-09-10] MEDS: PRENATAL VITAMINS W/ FOLIC ACID TABLET (FP) PO SCH (09:28)
[2022-09-10] MEDS: LISINOPRIL 5 MG TABLET PO SCH (09:28)
[2022-09-10] MEDS: PANTOPRAZOLE 20 MG TABLET PO SCH (09:28)
[2022-09-10] MEDS: ASPIRIN 81 MG CHEWABLE TABLETS PO SCH (09:28)
== END 2022-09-10 10:58 | disposition home or self-care (01) | DRG 772 ==
LOC: YASAS 13:01 → Y3E 13:02
PROVIDERS: ADMIT Allergy & Immunology; ATTEND Allergy & Immunology
PROC: HZ42ZZZ Group Counseling for Substance Abuse Treatment, Cognitive-Behavioral (ICD-10-PCS; principal; 2022-09-01)
DX: F10.20 Alcohol dependence, uncomplicated (principal); F17.210 Nicotine dependence, cigarettes, uncomplicated; F32.A Depression, unspecified; G47.00 Insomnia, unspecified; I10 Essential (primary) hypertension; E78.5 Hyperlipidemia, unspecified; E11.42 Type 2 diabetes mellitus with diabetic polyneuropathy; Z79.4 Long term (current) use of insulin
CPT/HCPCS: 36415; 82140; 82962; 86803; Q0162